=== PATIENT | female | born 1970 | race Caucasian/White ===

== ENCOUNTER 2024-03-11 00:31 | Emergency (ER) | payer OTHER ==
[2024-03-11 01:34] VITALS: RESP 18; TEMP 98.2
--- NOTE | 2024-03-11 01:58 | XR ---
EXAM: XR Chest, 2 Views CLINICAL HISTORY: ITS.REASON XR Reason: Weakness TECHNIQUE: Frontal and lateral views of the chest. COMPARISON: No relevant prior studies available. FINDINGS: Lungs: Unremarkable. No consolidation. Pleural space: Unremarkable. No pneumothorax. Heart: Unremarkable. No cardiomegaly. Mediastinum: Unremarkable. Normal mediastinal contour. Bones/joints: Multilevel thoracolumbar fusion hardware. No acute fracture. Tubes, lines and devices: LEFT Port-A-Cath terminates in the SVC. IMPRESSION: No acute findings in the chest.
--- NOTE | 2024-03-11 02:12 | XR ---
EXAM: XR Right Knee, 3 Views CLINICAL HISTORY: ITS.REASON XR Reason: pain TECHNIQUE: Three views of the right knee. COMPARISON: No relevant prior studies available. FINDINGS: Bones/joints: Severe joint space narrowing of the medial compartment. Tricompartmental osteophytic spurring. Osseous demineralization. No acute fracture or subluxation. Soft tissues: Unremarkable. IMPRESSION: 1. No acute fracture or subluxation. 2. Severe joint space narrowing of the medial compartment. Tricompartmental osteophytic spurring.
[2024-03-11] MEDS: SODIUM CHLORIDE 0.9% 1,000 ML IV STA (02:27)
[2024-03-11] MEDS: KETOROLAC 15 MG/ML 1 ML VIAL IVP STA (02:28)
[2024-03-11] MEDS: methylPREDNISolone SOD SUCCI 125 MG/2 ML VIAL IV ONE (02:28)
[2024-03-11 02:42] LABS: Basophils # (A) 0.1 k/uL (0-0.2); Basophils % (A) 1 %; Eosinophils # (A) 0.4 k/uL (0-0.7); Eosinophils % (A) 4 %; HCT 40.3 % (34.0-46.0); Lymphocytes # (A) 1.4 k/uL (1.0-4.8); Lymphocytes % (A) 14 %; MCH 32.4 pg (25.0-35.0); MCHC 34.7 g/dL (31.0-37.0); MCV 93.5 fL (80.0-100.0); Mean Platelet Volume 7.6; Monocytes # (A) 0.3 k/uL (0-1.0); Monocytes % (A) 3 %; Neutrophils # (A) 7.2 k/uL (1.3-7.7); Neutrophils % (A) 75 %; Platelet Count 243 k/uL (150-450); RBC 4.32 m/uL (3.80-5.40); RDW 14.4 % (11.5-15.5); WBC 9.6 k/uL (3.8-10.6)
[2024-03-11 03:00] LABS: ALT 24 U/L (4-34); AST 33 U/L (14-36); African American GFR (CKD) 68 (>60 ml/min/1.73 sqM); Albumin 4.5 g/dL (3.5-5.0); Alkaline Phosphatase 145 U/L (38-126); Anion Gap 11 mmol/L; Blood Urea Nitrogen 38 mg/dL (7-17); Calcium 8.3 mg/dL (8.4-10.2); Carbon Dioxide 23 mmol/L (22-30); Chloride 106 mmol/L (98-107); Glucose 106 mg/dL (74-99); Non-African American GFR(CKD) 59 (>60 ml/min/1.73 sqM); Potassium 3.6 mmol/L (3.5-5.1); Sodium 140 mmol/L (137-145); Total Bilirubin 0.4 mg/dL (0.2-1.3); Total Protein 7.8 g/dL (6.3-8.2)
[2024-03-11] MEDS: IPRATROPIUM-ALBUTEROL 3 ML NEB INHALATION STA (03:02)
--- NOTE | 2024-03-11 03:31 | ED ---
Lower Extremity Injury HPI - General Chief Complaint: Extremity Injury, Lower Stated Complaint: Weak legs Time Seen by Provider: 03/11/24 00:57 Source: patient Mode of arrival: EMS Limitations: no limitations - History of Present Illness Initial Comments: 53-year-old female present with chief complaint of right knee pain. Patient has history of chronic knee pain and states that today the pain is much worse. She recently moved here from [place], she is currently homeless. She states that the airline lost her walker and it has been difficult for her to get around. Her pain is worse with weightbearing. She states that she does feel a bit generally weak. She also admits to some shortness of breath. She has history of asthma. She does smoke cigarettes and marijuana. No chest pain, fever, chills, nausea, vomiting, abdominal pain, numbness, tingling, recent injury or trauma. - Related Data Previous Rx's Medication Instructions Recorded Albuterol Sulfate [Albuterol 2 puff PO Q6H PRN #8.5 gm 03/11/24 Sulfate Hfa] methylPREDNISolone Dose Pack 4 mg PO DIRECTED #1 packet 03/11/24 [Medrol Dose Pack] Allergies Allergy/AdvReac Type Severity Reaction Status Date / Time No Known Allergies Allergy Verified 03/11/24 00:50 Review of Systems ROS Statement: Those systems with pertinent positive or pertinent negative responses have been documented in the HPI. ROS Other: All systems not noted in ROS Statement are negative. Past Medical History Past Medical History: Asthma, Hypertension Additional Past Medical History / Comment(s): rectal ca History of Any Multi-Drug Resistant Organisms: None Reported Past Surgical History: Orthopedic Surgery Additional Past Surgical History / Comment(s): thyroid removal, had an ostomy but had reversal surgery Past Psychological History: Anxiety, Depression Smoking Status: Current every day smoker, Vaper Past Alcohol Use History: Occasional Past Drug Use History: Marijuana, Methamphetamine General Exam Limitations: no limitations General appearance: alert, in no apparent distress Head exam: Present: atraumatic, normocephalic Eye exam: Present: normal appearance, EOMI Neck exam: Present: normal inspection. Absent: meningismus Respiratory exam: Present: wheezes. Absent: respiratory distress, rales, rhonchi, stridor Cardiovascular Exam: Present: regular rate, normal rhythm, normal heart sounds. Absent: systolic murmur, diastolic murmur, rubs, gallop, clicks Right Knee exam: Present: normal inspection, full ROM, tenderness Neurovascular tendon exam: Present: no vascular compromise Neurological exam: Present: alert, oriented X3 Psychiatric exam: Present: normal affect, normal mood Skin exam: Present: warm, dry Course Vital Signs 03/11/24 03/11/24 03/11/24 00:43 03:02 03:17 Temperature 98.2 F Pulse Rate 80 80 80 Respiratory 18 Rate Blood Pressure 95/54 O2 Sat by Pulse 98 Oximetry Medical Decision Making - Medical Decision Making Was pt. sent in by a medical professional or institution (, [place], [employer], urgent care, hospital, or shelter...) When possible be specific @ -No Did you speak to anyone other than the patient for history (EMS, parent, family, police, friend...)? What history was obtained from this source @ -No Did you review nursing and triage notes (agree or disagree)? Why? @ -I reviewed and agree with nursing and triage notes Were old charts reviewed (outside hosp., previous admission, EMS record, old EKG, old radiological studies, urgent care reports/EKG's, shelter records)? Report findings @ -No old charts were reviewed Differential Diagnosis (chest pain, altered mental status, abdominal pain women, abdominal pain men, vaginal bleeding, weakness, fever, dyspnea, syncope, headache, dizziness, GI bleed, back pain, seizure, CVA, palpatations, mental health, musculoskeletal)? @ -Differential Musculoskeletal Muscular strain, contusion, ligament sprain, fracture, arthritis, septic arthritis, bursitis, cellulitis, muscle spasm, nerve compression, DVT, arterial occlusion, herpes zoster, electrolyte abnormality, tumor.... This is not meant to be in all inclusive list EKG interpreted by me (3pts min.). @ -As above X-rays interpreted by me (1pt min.). @ -X-ray of the knee shows no acute fracture or subluxation. Severe joint space narrowing of the medial compartment. Tricompartmental osteophytic spurring Chest x-ray shows no acute findings CT interpreted by me (1pt min.). @ -None done U/S interpreted by me (1pt. min.). @ -None done What testing was considered but not performed or refused? (CT, X-rays, U/S, labs)? Why? @ -None What meds were considered but not given or refused? Why? @ -None Did you discuss the management of the patient with other professionals (professionals i.e. , [place], [employer], lab, RT, psych nurse, addiction social worker, security risk analyst, teacher, juvenile justice officer, nurse case management)? Give summary @ -No Was smoking cessation discussed for >3mins.? @ -No Was critical care preformed (if so, how long)? @ -No Were there social determinants of health that impacted care today? How? (Homelessness, low income, unemployed, alcoholism, drug addiction, transportation, low edu. Level, literacy, decrease access to med. care, group home, rehab)? @ -No Was there de-escalation of care discussed even if they declined (Discuss DNR or withdrawal of care, Hospice)? DNR status @ -No What co-morbidities impacted this encounter? (DM, HTN, Smoking, COPD, CAD, Cancer, CVA, ARF, Chemo, Hep., AIDS, mental health diagnosis, sleep apnea, morbid obesity)? @ -None Was patient admitted / discharged? Hospital course, mention meds given and route, prescriptions, significant lab abnormalities, going to OR and other pertinent info. @ -53-year-old female presenting with chief complaint of knee pain. Her walker was recently lost on her flight from [place] to [place], she has been in [place] for the last day. On physical exam she does have some expiratory wheezes on auscultation. States that she feels a bit generally weak. Lab work shows no leukocytosis or anemia. BUN 38 creatinine 1.07. Knee x-ray shows no fracture or dislocation, evidence of degenerative changes. Chest x-ray shows no acute findings. Patient is treated with Toradol, Solu-Medrol, DuoNeb, and fluids. On reassessment the patient is resting comfortably showing no acute signs of distress. She is provided with a prescription for a new walker to be purchased at a medical supply store. Provided with Medrol Dosepak and albuterol inhaler for her asthma. Discharged home. Follow-up with PCP. Report back to ER with any new or worsening symptoms. Discussed return parameters and answered all questions. Patient conveyed verbal understanding and agreed to the plan. I discussed this case in detail with my attending Dr. Lopez Undiagnosed new problem with uncertain prognosis? @ -No Drug Therapy requiring intensive monitoring for toxicity (Heparin, Nitro, Insulin, Cardizem)? @ -No Were any procedures done? @ -No Diagnosis/symptom? @ -Knee pain Acute, or Chronic, or Acute on Chronic? @ -Acute on chronic Uncomplicated (without systemic symptoms) or Complicated (systemic symptoms)? @ -Uncomplicated Side effects of treatment? @ -No Exacerbation, Progression, or Severe Exacerbation? @ -No Poses a threat to life or bodily function? How? (Chest pain, [place], [place], pneumonia, PE, COPD, DKA, ARF, appy, cholecystitis, CVA, Diverticulitis, Homicidal, Suicidal, threat to staff... and all critical care pts) @ -No Diagnosis/symptom? @Asthma exacerbation Acute, or Chronic, or Acute on Chronic? @Acute Uncomplicated (without systemic symptoms) or Complicated (systemic symptoms)? @Uncomplicated Side effects of treatment? @None Exacerbation, Progression, or Severe Exacerbation] @Exacerbation Poses a threat to life or bodily function? @Low likelihood - Lab Data Result diagrams: 03/11/24 02:31 03/11/24 02:31 Lab Results 03/11/24 03/11/24 Range/Units 02:31 02:31 WBC 9.6 (3.8-10.6) k/uL RBC 4.32 (3.80-5.40) m/uL Hgb 14.0 (11.4-16.0) gm/dL Hct 40.3 (34.0-46.0) % MCV 93.5 (80.0-100.0) fL MCH 32.4 (25.0-35.0) pg MCHC 34.7 (31.0-37.0) g/dL RDW 14.4 (11.5-15.5) % Plt Count 243 (150-450) k/uL MPV 7.6 Neutrophils % 75 % Lymphocytes % 14 % Monocytes % 3 % Eosinophils % 4 % Basophils % 1 % Neutrophils # 7.2 (1.3-7.7) k/uL Lymphocytes # 1.4 (1.0-4.8) k/uL Monocytes # 0.3 (0-1.0) k/uL Eosinophils # 0.4 (0-0.7) k/uL Basophils # 0.1 (0-0.2) k/uL Sodium 140 (137-145) mmol/L Potassium 3.6 (3.5-5.1) mmol/L Chloride 106 (98-107) mmol/L Carbon Dioxide 23 (22-30) mmol/L Anion Gap 11 mmol/L BUN 38 H (7-17) mg/dL Creatinine 1.07 H (0.52-1.04) mg/dL Est GFR (CKD-EPI)AfAm 68 (>60 ml/min/1.73 sqM) Est GFR (CKD-EPI)NonAf 59 (>60 ml/min/1.73 sqM) Glucose 106 H (74-99) mg/dL Calcium 8.3 L (8.4-10.2) mg/dL Total Bilirubin 0.4 (0.2-1.3) mg/dL AST 33 (14-36) U/L ALT 24 (4-34) U/L Alkaline Phosphatase 145 H (38-126) U/L Total Protein 7.8 (6.3-8.2) g/dL Albumin 4.5 (3.5-5.0) g/dL Disposition Clinical Impression: Chronic knee pain, Asthma exacerbation Disposition: HOME SELF-CARE Condition: Good Instructions (If sedation given, give patient instructions): Asthma (ED), Knee Pain (ED) Additional Instructions: Follow-up with PCP, suggestions provided. Report back to ER with any new or worsening symptoms. Prescriptions: Albuterol Sulfate [Albuterol Sulfate Hfa] 2 puff PO Q6H PRN #8.5 gm PRN Reason: Shortness Of Breath methylPREDNISolone Dose Pack [Medrol Dose Pack] 4 mg PO DIRECTED #1 packet Is patient prescribed a controlled substance at d/c from ED?: No Referrals: None,Stated [Primary Care Provider] - 1-2 days Suresh Weir MD [STAFF PHYSICIAN] - 1-2 days Felix John MD [STAFF PHYSICIAN] - 1-2 days Time of Disposition: 03:31
[2024-03-11 03:45] VITALS: BP 119/66; PULSE 90
== END 2024-03-11 03:47 | disposition home or self-care (01) ==
LOC: EC 00:31
DX: J45.901 Unspecified asthma with (acute) exacerbation (principal); G89.29 Other chronic pain; M76.9 Unspecified enthesopathy, lower limb, excluding foot; F17.290 Nicotine dependence, other tobacco product, uncomplicated
CPT/HCPCS: 36415; 94640; 80053; 85025; 73562; 71046; 99284; 96374; 96375; 96361; J1885; J2919

== ENCOUNTER 2024-03-24 16:01 | Emergency (ER) | payer OTHER ==
--- NOTE | 2024-03-24 16:36 | ED ---
Female Urogenital HPI - General Source: patient, RN notes reviewed Mode of arrival: ambulatory Limitations: no limitations <Toya Matta - Last Filed: 03/24/24 16:35> <Anderson Lopez - Last Filed: 03/24/24 18:31> - General Stated complaint: UTI Time Seen by Provider: 03/24/24 16:35 - History of Present Illness Initial comments: Quick note: 53-year-old female presented to the ER with a chief complaint of urinary frequency and dysuria. She reports she has been having the symptoms for the past week and has been trying cranberry juice without relief. She denies any fevers or chills. Patient is concerned she has a UTI. (Toya Matta) - Related Data Previous Rx's Medication Instructions Recorded Albuterol Sulfate [Albuterol 2 puff PO Q6H PRN #8.5 gm 03/11/24 Sulfate Hfa] Albuterol Sulfate [Albuterol 2 puff PO Q6H PRN #8.5 gm 03/11/24 Sulfate Hfa] methylPREDNISolone Dose Pack 4 mg PO DIRECTED #1 packet 03/11/24 [Medrol Dose Pack] methylPREDNISolone Dose Pack 4 mg PO DIRECTED #1 packet 03/11/24 [Medrol Dose Pack] Cephalexin [Keflex] 500 mg PO Q6HR #20 cap 03/24/24 Allergies Allergy/AdvReac Type Severity Reaction Status Date / Time No Known Allergies Allergy Verified 03/24/24 17:02 Review of Systems ROS Other: All systems not noted in ROS Statement are negative. <Toya Matta - Last Filed: 03/24/24 16:35> ROS Other: All systems not noted in ROS Statement are negative. <Anderson Lopez - Last Filed: 03/24/24 18:31> ROS Statement: Those systems with pertinent positive or pertinent negative responses have been documented in the HPI. Past Medical History Past Medical History: Asthma, Hypertension Additional Past Medical History / Comment(s): rectal ca History of Any Multi-Drug Resistant Organisms: None Reported Past Surgical History: Orthopedic Surgery Additional Past Surgical History / Comment(s): thyroid removal, had an ostomy but had reversal surgery Past Psychological History: Anxiety, Depression Smoking Status: Current every day smoker, Vaper Past Alcohol Use History: Occasional Past Drug Use History: Marijuana, Methamphetamine <Toya Matta - Last Filed: 03/24/24 16:35> General Exam <Toya Matta - Last Filed: 03/24/24 16:35> - General Exam Comments Initial Comments: Visual Physical Exam Vital signs reviewed General: Well-appearing, nontoxic, no acute distress. Head: Normocephalic, atraumatic Eyes: PERRLA, EOMI ENT: Airway patent Chest: Nonlabored breathing Skin: No visual rash, normal skin tone Neuro: Alert and oriented 3 Musculoskeletal: No gross abnormalities (Toya Matta) Course Vital Signs 03/24/24 17:00 Temperature 98.2 F Pulse Rate 100 Respiratory 18 Rate Blood Pressure 139/90 O2 Sat by Pulse 100 Oximetry Medical Decision Making <Toya Matta - Last Filed: 03/24/24 16:35> - Medical Decision Making I performed the quick note portion of this chart. Electronically signed by Toya Matta PA-C (Toya Matta) - Lab Data Lab Results 03/24/24 Range/Units 17:00 Urine Color Yellow Urine Appearance Clear (Clear) Urine pH 5.5 (5.0-8.0) Ur Specific [place] 1.026 (1.001-1.035) Urine Protein Trace H (Negative) Urine Glucose (UA) Negative (Negative) Urine Ketones Negative (Negative) Urine Blood Negative (Negative) Urine Nitrite Negative (Negative) Urine Bilirubin Negative (Negative) Urine Urobilinogen 2.0 (<2.0) mg/dL Ur Leukocyte Esterase Large H (Negative) Urine RBC 3 (0-5) /hpf Urine WBC 1 (0-5) /hpf Ur Squamous Epith Cells 1 (0-4) /hpf Urine Mucus Many H (None) /hpf Disposition <Toya Matta - Last Filed: 03/24/24 16:35> Is patient prescribed a controlled substance at d/c from ED?: No Time of Disposition: 18:30 <Anderson Lopez - Last Filed: 03/24/24 18:31> Clinical Impression: UTI (urinary tract infection), Chest pain Disposition: HOME SELF-CARE Condition: Good Instructions (If sedation given, give patient instructions): Chest Pain (ED), Urinary Tract Infection in Women (ED) Prescriptions: Cephalexin [Keflex] 500 mg PO Q6HR #20 cap Referrals: None,Stated [Primary Care Provider] - 1-2 days
[2024-03-24 17:05] VITALS: BP 139/90; RESP 18; TEMP 98.2
[2024-03-24 17:55] LABS: Appearance,Urine Clear (Clear); Bilirubin,Urine Negative (Negative); Blood,Urine Negative (Negative); Color,Urine Yellow; Glucose,Urine (UA) Negative (Negative); Ketones,Urine Negative (Negative); Leukocyte Esterase,Urine Large (Negative); Mucus,Urine Many /hpf; Nitrite,Urine Negative (Negative); PH, Urine 5.5 (5.0-8.0); Protein,Urine Trace (Negative); RBC,Urine 3 /hpf (0-5); Specific Gravity,Urine 1.026 (1.001-1.035); Squamous Epithelial Cell,Urine 1 /hpf (0-4); WBC,Urine 1 /hpf (0-5)
[2024-03-24] MEDS: Acetaminophen-Codeine 300-30mg TAB PO STA (18:44)
[2024-03-24] MEDS: ACET/COD 300 MG/30 MG STARTER PACK 6 TAB BTL PO STA (18:45)
[2024-03-24] MEDS: IBUPROFEN 600 MG STARTER PACK 4 TAB BTL PO STA (18:46)
[2024-03-24] MEDS: CEPHALEXIN 500MG STARTER PACK 4 CAP BTL PO STA (18:47)
[2024-03-24] MEDS: CEPHALEXIN 500 MG CAP PO STA (18:47)
[2024-03-24 19:28] VITALS: PULSE 87
== END 2024-03-24 18:52 | disposition home or self-care (01) ==
LOC: EC 16:01
DX: N39.0 Urinary tract infection, site not specified (principal); R07.89 Other chest pain; F17.290 Nicotine dependence, other tobacco product, uncomplicated; F12.90 Cannabis use, unspecified, uncomplicated; F15.90 Other stimulant use, unspecified, uncomplicated
CPT/HCPCS: 81001; 99283

== ENCOUNTER 2024-03-26 23:53 | Emergency (ER) | payer OTHER ==
[2024-03-27 01:26] LABS: Basophils # (A) 0.1 k/uL (0-0.2); Basophils % (A) 1 %; Eosinophils # (A) 0.3 k/uL (0-0.7); Eosinophils % (A) 4 %; HCT 42.8 % (34.0-46.0); HGB 14.3 gm/dL (11.4-16.0); Lymphocytes # (A) 1.7 k/uL (1.0-4.8); Lymphocytes % (A) 18 %; MCHC 33.3 g/dL (31.0-37.0); MCV 93.3 fL (80.0-100.0); Monocytes # (A) 0.5 k/uL (0-1.0); Monocytes % (A) 5 %; Neutrophils # (A) 6.6 k/uL (1.3-7.7); Neutrophils % (A) 70 %; Platelet Count 214 k/uL (150-450); RBC 4.59 m/uL (3.80-5.40); WBC 9.5 k/uL (3.8-10.6)
[2024-03-27 01:36] LABS: ALT 33 U/L (4-34); AST 34 U/L (14-36); African American GFR (CKD) >90 (>60 ml/min/1.73 sqM); Alkaline Phosphatase 164 U/L (38-126); Anion Gap 7 mmol/L; Blood Urea Nitrogen 24 mg/dL (7-17); Calcium 8.5 mg/dL (8.4-10.2); Carbon Dioxide 23 mmol/L (22-30); Chloride 108 mmol/L (98-107); Glucose 92 mg/dL (74-99); Non-African American GFR(CKD) >90 (>60 ml/min/1.73 sqM); Potassium 3.8 mmol/L (3.5-5.1); Sodium 138 mmol/L (137-145); Total Bilirubin 0.6 mg/dL (0.2-1.3)
--- NOTE | 2024-03-27 01:54 | ED ---
General Adult HPI - General Chief complaint: Recheck/Abnormal Lab/Rx Stated complaint: UTI Time Seen by Provider: 03/27/24 01:05 Source: patient Mode of arrival: ambulatory Limitations: no limitations - History of Present Illness Initial comments: 53-year-old female presenting with chief complaint of UTI. Patient was seen here on the with the same complaints. She was started on Keflex. States that her symptoms have worsened. She admits to dysuria and bilateral flank pain. States that she is experiencing bladder spasms. Some nausea no vomiting. No fever. - Related Data Previous Rx's Medication Instructions Recorded Albuterol Sulfate [Albuterol 2 puff PO Q6H PRN #8.5 gm 03/11/24 Sulfate Hfa] Albuterol Sulfate [Albuterol 2 puff PO Q6H PRN #8.5 gm 03/11/24 Sulfate Hfa] methylPREDNISolone Dose Pack 4 mg PO DIRECTED #1 packet 03/11/24 [Medrol Dose Pack] methylPREDNISolone Dose Pack 4 mg PO DIRECTED #1 packet 03/11/24 [Medrol Dose Pack] Cephalexin [Keflex] 500 mg PO Q6HR #20 cap 03/24/24 Sulfamethox-Tmp 800-160Mg [Bactrim 1 tab PO Q12HR 7 Days #14 tab 03/27/24 DS 800-160 mg] Allergies Allergy/AdvReac Type Severity Reaction Status Date / Time No Known Allergies Allergy Verified 03/24/24 17:02 Review of Systems ROS Statement: Those systems with pertinent positive or pertinent negative responses have been documented in the HPI. ROS Other: All systems not noted in ROS Statement are negative. Past Medical History Past Medical History: Asthma, Hypertension Additional Past Medical History / Comment(s): rectal ca [id number] with chemo and radiation History of Any Multi-Drug Resistant Organisms: C-DIFF Past Surgical History: Orthopedic Surgery Additional Past Surgical History / Comment(s): thyroid removal, had an ostomy but had reversal surgery, 8 level spinal fusion Past Psychological History: Anxiety, Depression Smoking Status: Current every day smoker, Vaper Past Alcohol Use History: Occasional Past Drug Use History: Marijuana, Methamphetamine General Exam Limitations: no limitations General appearance: alert, in no apparent distress Head exam: Present: atraumatic, normocephalic Eye exam: Present: normal appearance, EOMI Neck exam: Present: normal inspection. Absent: meningismus Respiratory exam: Present: normal lung sounds bilaterally. Absent: respiratory distress, wheezes, rales, rhonchi, stridor Cardiovascular Exam: Present: regular rate, normal rhythm, normal heart sounds. Absent: systolic murmur, diastolic murmur, rubs, gallop, clicks Back exam: Present: normal inspection, paraspinal tenderness. Absent: vertebral tenderness Neurological exam: Present: alert, oriented X3 Psychiatric exam: Present: normal affect, normal mood Skin exam: Present: warm, dry Course Vital Signs 03/27/24 03/27/24 00:08 04:42 Temperature 98.2 F 98.1 F Pulse Rate 83 78 Respiratory 21 18 Rate Blood Pressure 119/86 120/88 O2 Sat by Pulse 99 99 Oximetry Medical Decision Making - Medical Decision Making Patient has been here for 4 hours and in that time has refused to provide a urine sample. Given that the patient is not willing to cooperate with the plan of care she was discharged. Was pt. sent in by a medical professional or institution (, [place], [employer], urgent care, hospital, or care home...) When possible be specific @ -No Did you speak to anyone other than the patient for history (EMS, parent, family, police, friend...)? What history was obtained from this source @ -No Did you review nursing and triage notes (agree or disagree)? Why? @ -I reviewed and agree with nursing and triage notes Were old charts reviewed (outside hosp., previous admission, EMS record, old EKG, old radiological studies, urgent care reports/EKG's, care home records)? Report findings @ -No old charts were reviewed Differential Diagnosis (chest pain, altered mental status, abdominal pain women, abdominal pain men, vaginal bleeding, weakness, fever, dyspnea, syncope, headache, dizziness, GI bleed, back pain, seizure, CVA, palpatations, mental health, musculoskeletal)? @ -Differential includes UTI, pyelonephritis, kidney stone, cystitis, this is not an all-inclusive list EKG interpreted by me (3pts min.). @ -As above X-rays interpreted by me (1pt min.). @ -None done CT interpreted by me (1pt min.). @ -None done U/S interpreted by me (1pt. min.). @ -None done What testing was considered but not performed or refused? (CT, X-rays, U/S, labs)? Why? @ -None What meds were considered but not given or refused? Why? @ -None Did you discuss the management of the patient with other professionals (professionals i.e. , PA, [employer], lab, RT, psych nurse, manager social services, cork tipper, teacher, aeronautical engineering officer, family caseworker)? Give summary @ -No Was smoking cessation discussed for >3mins.? @ -No Was critical care preformed (if so, how long)? @ -No Were there social determinants of health that impacted care today? How? (Homelessness, low income, unemployed, alcoholism, drug addiction, transportation, low edu. Level, literacy, decrease access to med. care, nursing home, rehab)? @ -No Was there de-escalation of care discussed even if they declined (Discuss DNR or withdrawal of care, Hospice)? DNR status @ -No What co-morbidities impacted this encounter? (DM, HTN, Smoking, COPD, CAD, Cancer, CVA, ARF, Chemo, Hep., AIDS, mental health diagnosis, sleep apnea, morbid obesity)? @ -None Was patient admitted / discharged? Hospital course, mention meds given and route , prescriptions, significant lab abnormalities, going to OR and other pertinent info. @ -53-year-old female presenting with chief complaint of worsening urinary tract infection. She was seen here on the and given Keflex. She states that her symptoms are not improving. Lab work shows no leukocytosis or anemia. After 4 hours the patient has not made any effort to provide a urine. When I a sked the patient when she will be able to provide a urine she tells me "no". The patient is sleeping in the room and refuses to leave a urine sample. Given that the patient is not willing to cooperate with the plan of care she was discharged. I discussed this case with my attending Dr. Zelaya The following day UA results are available to me and show large leukocytes with 30 WBC and 9 squamous cells. Patient is sent a prescription for Bactrim. Undiagnosed new problem with uncertain prognosis? @ -No Drug Therapy requiring intensive monitoring for toxicity (Heparin, Nitro, Insulin, Cardizem)? @ -No Were any procedures done? @ -No Diagnosis/symptom? @ -Dysuria Acute, or Chronic, or Acute on Chronic? @ -Acute Uncomplicated (without systemic symptoms) or Complicated (systemic symptoms)? @ -Uncomplicated Side effects of treatment? @ -No Exacerbation, Progression, or Severe Exacerbation? @ -No Poses a threat to life or bodily function? How? (Chest pain, [place], [place], pneumonia, PE, COPD, DKA, ARF, appy, cholecystitis, CVA, Diverticulitis, Homicidal, Suicidal, threat to staff... and all critical care pts) @ -Low likelihood at this time - Lab Data Result diagrams: 03/27/24 01:13 03/27/24 01:13 Lab Results 03/27/24 03/27/24 03/27/24 Range/Units 01:13 01:13 04:08 WBC 9.5 (3.8-10.6) k/uL RBC 4.59 (3.80-5.40) m/uL Hgb 14.3 (11.4-16.0) gm/dL Hct 42.8 (34.0-46.0) % MCV 93.3 (80.0-100.0) fL MCH 31.0 (25.0-35.0) pg MCHC 33.3 (31.0-37.0) g/dL RDW 14.0 (11.5-15.5) % Plt Count 214 (150-450) k/uL MPV 7.0 Neutrophils % 70 % Lymphocytes % 18 % Monocytes % 5 % Eosinophils % 4 % Basophils % 1 % Neutrophils # 6.6 (1.3-7.7) k/uL Lymphocytes # 1.7 (1.0-4.8) k/uL Monocytes # 0.5 (0-1.0) k/uL Eosinophils # 0.3 (0-0.7) k/uL Basophils # 0.1 (0-0.2) k/uL Sodium 138 (137-145) mmol/L Potassium 3.8 (3.5-5.1) mmol/L Chloride 108 H (98-107) mmol/L Carbon Dioxide 23 (22-30) mmol/L Anion Gap 7 mmol/L BUN 24 H (7-17) mg/dL Creatinine 0.67 (0.52-1.04) mg/dL Est GFR (CKD-EPI)AfAm >90 (>60 ml/min/1.73 sqM) Est GFR (CKD-EPI)NonAf >90 (>60 ml/min/1.73 sqM) Glucose 92 (74-99) mg/dL Calcium 8.5 (8.4-10.2) mg/dL Total Bilirubin 0.6 (0.2-1.3) mg/dL AST 34 (14-36) U/L ALT 33 (4-34) U/L Alkaline Phosphatase 164 H (38-126) U/L Total Protein 7.0 (6.3-8.2) g/dL Albumin 4.0 (3.5-5.0) g/dL Urine Color Yellow Urine Appearance Cloudy H (Clear) Urine pH 5.5 (5.0-8.0) Ur Specific [place] 1.029 (1.001-1.035) Urine Protein Trace H (Negative) Urine Glucose (UA) Negative (Negative) Urine Ketones Negative (Negative) Urine Blood Negative (Negative) Urine Nitrite Negative (Negative) Urine Bilirubin Negative (Negative) Urine Urobilinogen 2.0 (<2.0) mg/dL Ur Leukocyte Esterase Large H (Negative) Urine RBC 5 (0-5) /hpf Urine WBC 30 H (0-5) /hpf Ur Squamous Epith Cells 9 H (0-4) /hpf Urine Bacteria Rare H (None) /hpf Urine Mucus Many H (None) /hpf Disposition Clinical Impression: Dysuria Narrative: Patient refused to cooperate and provide requested urine sample. Discharged. Disposition: HOME SELF-CARE Condition: Fair Prescriptions: Sulfamethox-Tmp 800-160Mg [Bactrim DS 800-160 mg] 1 tab PO Q12HR 7 Days #14 tab Is patient prescribed a controlled substance at d/c from ED?: No Referrals: None,Stated [Primary Care Provider] - 1-2 days
[2024-03-27] MEDS: KETOROLAC 15 MG/ML 1 ML VIAL IM STA (02:10)
[2024-03-27 04:24] LABS: Appearance,Urine Cloudy (Clear); Bacteria,Urine Rare /hpf; Bilirubin,Urine Negative (Negative); Blood,Urine Negative (Negative); Color,Urine Yellow; Glucose,Urine (UA) Negative (Negative); Ketones,Urine Negative (Negative); Leukocyte Esterase,Urine Large (Negative); Mucus,Urine Many /hpf; Nitrite,Urine Negative (Negative); PH, Urine 5.5 (5.0-8.0); Protein,Urine Trace (Negative); RBC,Urine 5 /hpf (0-5); Specific Gravity,Urine 1.029 (1.001-1.035); Squamous Epithelial Cell,Urine 9 /hpf (0-4); WBC,Urine 30 /hpf (0-5)
[2024-03-27 04:49] VITALS: BP 120/88; PULSE 78; RESP 18; TEMP 98.1
== END 2024-03-27 04:43 | disposition home or self-care (01) ==
LOC: EC 23:53
DX: R30.0 Dysuria (principal); F12.90 Cannabis use, unspecified, uncomplicated; F15.90 Other stimulant use, unspecified, uncomplicated; F17.290 Nicotine dependence, other tobacco product, uncomplicated
CPT/HCPCS: 36415; 80053; 85025; 81001; 87086; 99284; 96372; J1885

== ENCOUNTER 2024-05-22 17:32 | Inpatient (IN) | payer MEDICARE, MEDICAID ==
--- NOTE | 2024-05-22 17:39 | ED ---
General Adult HPI <Suresh Hobson - Last Filed: 05/22/24 22:33> <Pao Jarquin - Last Filed: 05/26/24 00:47> - General Stated complaint: overdose Time Seen by Provider: 05/22/24 17:36 - History of Present Illness Initial comments: Dictation was produced using [employer] dictation software. please excuse any grammatical, word or spelling errors. Chief Complaint: 54-year-old female presents to the ER for altered mental status History of Present Illness: Patient 54-year-old female history present illness obtained from EMS. EMS states that they were called by PD for altered patient at the [facility]. Patient notably has history of rectal cancer. Upon EMS arrival patient had stable vitals. They were able to arouse her however require d sternal rub. She did mention to them that she took 5 to 10 pills of her Ambien because she was try to go to sleep. Patient allegedly came in by PD yesterday for suicidal evaluation however she left without being seen. Patient is a poor historian at this time due to somnolence Unable to obtain ROS secondary to mental status (Suresh Hobson) - Related Data Home Medications Medication Instructions Recorded Confirmed Albuterol Sulfate [Albuterol 2 puff PO RT-Q6H PRN 05/22/24 05/23/24 Sulfate Hfa] Buprenorphine HCl/Naloxone HCl 1 film SL TID 05/22/24 05/23/24 [Suboxone 8 mg-2 mg Sl Film] Furosemide [Lasix] 20 mg PO DAILY PRN 05/22/24 05/23/24 Levothyroxine Sodium [Synthroid] 175 mcg PO DAILY 05/22/24 05/23/24 Potassium Chloride ER [K-Dur 10] 10 meq PO BID PRN 05/22/24 05/23/24 hydroCHLOROthiazide [Hydrodiuril] 25 mg PO DAILY 05/22/24 05/23/24 lisinopriL [Zestril] 20 mg PO DAILY 05/22/24 05/23/24 DULoxetine HCL [Cymbalta] 60 mg PO DIRECTED 05/23/24 05/23/24 Omeprazole/Sodium Bicarbonate 1 cap PO BID 05/23/24 05/23/24 [Zegerid 20 mg Capsule] Allergies Allergy/AdvReac Type Severity Reaction Status Date / Time No Known Allergies Allergy Verified 05/23/24 11:34 Review of Systems ROS Other: All systems not noted in ROS Statement are negative. <Suresh Hobson - Last Filed: 05/22/24 22:33> ROS Other: All systems not noted in ROS Statement are negative. <MilkaPao Bong - Last Filed: 05/26/24 00:47> ROS Statement: Those systems with pertinent positive or pertinent negative responses have been documented in the HPI. Past Medical History Past Medical History: Asthma, Hypertension Additional Past Medical History / Comment(s): rectal ca [id number] with chemo and radiation History of Any Multi-Drug Resistant Organisms: C-DIFF Past Surgical History: Orthopedic Surgery Additional Past Surgical History / Comment(s): thyroid removal, had an ostomy but had reversal surgery, 8 level spinal fusion Past Psychological History: Anxiety, Depression Smoking Status: Current every day smoker, Vaper Past Alcohol Use History: Occasional Past Drug Use History: Marijuana, Methamphetamine <Suresh Hobson - Last Filed: 05/22/24 22:33> General Exam <Suresh Hobson - Last Filed: 05/22/24 22:33> - General Exam Comments Initial Comments: PHYSICAL EXAM: General Impression: Sleeping, arousable with sternal rub, no pinpoint pupils, was able to move herself from the EMS stretcher to the bed. HEENT: Normocephalic atraumatic, extra-ocular movements intact, pupils equal and reactive to light bilaterally, mucous membranes moist. Cardiovascular: Heart regular rate and rhythm Chest: no retractions, no tachypnea Abdomen: abdomen soft, non-tender, non-distended, no organomegaly Musculoskeletal: Pulses present and equal in all extremities, no peripheral edema Motor: no focal deficits noted Neurological: CN II-XII grossly intact, no focal motor or sensory deficits noted Skin: Intact with no visualized rashes (Suresh Hobson) Course <Suresh Hobson - Last Filed: 05/22/24 22:33> Vital Signs 05/22/24 05/22/24 05/22/24 17:35 18:30 19:23 Temperature 98 F Pulse Rate 95 90 82 Respiratory 15 22 20 Rate Blood Pressure 141/85 155/96 147/98 O2 Sat by Pulse 96 99 99 Oximetry 05/22/24 05/22/24 05/22/24 21:00 22:00 22:38 Temperature Pulse Rate 87 84 88 Respiratory 26 H 24 Rate Blood Pressure 152/90 165/93 163/80 O2 Sat by Pulse 99 98 98 Oximetry 05/22/24 05/23/24 05/23/24 23:00 00:00 00:22 Temperature Pulse Rate 87 90 89 Respiratory Rate Blood Pressure 163/80 163/126 170/90 O2 Sat by Pulse 99 99 99 Oximetry 05/23/24 05/23/24 05/23/24 01:00 02:00 03:00 Temperature Pulse Rate 87 86 92 Respiratory 16 Rate Blood Pressure 153/81 165/94 136/60 O2 Sat by Pulse 99 100 97 Oximetry 05/23/24 05/23/24 05/23/24 04:00 05:00 06:00 Temperature Pulse Rate 89 91 75 Respiratory 16 16 16 Rate Blood Pressure 148/86 129/113 172/100 O2 Sat by Pulse 95 97 96 Oximetry 05/23/24 13:58 Temperature Pulse Rate 79 Respiratory 18 Rate Blood Pressure 145/73 O2 Sat by Pulse 96 Oximetry - Reevaluation(s) Reevaluation #1: 05/22/24 19:13 Patient did admit to overdosing on her Ambien medication. Labs unremarkable. Patient medically cleared for EPS evaluation. (Suresh Hobson) EKG Findings - EKG Comments: EKG Findings:: My EKG interpretation: Ventricular rate 90, sinus rhythm, right bundle branch block,. 176, cures 145, QTc 478. No MS prolongation, no QTC prolongation, no ST or T-wave changes noted. EKG compared to March 25, 2024 showing no changes. Overall, this EKG is unremarkable <Suresh Hobson - Last Filed: 05/22/24 22:33> Medical Decision Making - Lab Data Result diagrams: 05/22/24 18:09 05/22/24 18:09 <Suresh Hobson - Last Filed: 05/22/24 22:33> - Lab Data Result diagrams: 05/22/24 18:09 05/22/24 18:09 <Pao Jarquin - Last Filed: 05/26/24 00:47> - Medical Decision Making Was pt. sent in by a medical professional or institution (, PA, SEAL DELIVERY VEHICLE TEAM TECHNICIAN, urgent care, hospital, or correction...) When possible be specific @ -No Did you speak to anyone other than the patient for history (EMS, parent, family, police, friend...)? What history was obtained from this source @ -History obtained from EMS as described above Did you review nursing and triage notes (agree or disagree)? Why? @ -I reviewed and agree with nursing and triage notes Were old charts reviewed (outside hosp., previous admission, EMS record, old EKG, old radiological studies, urgent care reports/EKG's, correction records)? Report findings @ -No old charts were reviewed Differential Diagnosis (chest pain, altered mental status, abdominal pain women, abdominal pain men, vaginal bleeding, musculoskeletal, weakness, fever, dyspnea, syncope, headache, dizziness, GI bleed, back pain, seizure, CVA, palpatations, mental health)? @ -Differential Mental Health: Depression, anxiety, bipolar, psychosis, schizophrenia, borderline personality, situational depression, adjustment disorder, behavioral disorder, brain tumor, malingering, substance abuse, encephalopathy, medication reaction, dementia, hypothyroidism, degenerative neurologic disorder, lupus.... This is not meant to be all-inclusive list EKG interpreted by me (3pts min.). @ -See above X-rays interpreted by me (1pt min.). @ -None done CT interpreted by me (1pt min.). @ -None done U/S interpreted by me (1pt. min.). @ -None done What testing was considered but not performed or refused? (CT, X-rays, U/S, labs)? Why? @ -None What meds were considered but not given or refused? Why? @ -None Was smoking cessation discussed for >3mins.? @ -No Were there social determinants of health that impacted care today? How? (Homelessness, low income, unemployed, alcoholism, drug addiction, transportation, low edu. Level, literacy, decrease access to med. care, shelter, rehab)? @ -No Was there de-escalation of care discussed even if they declined (Discuss DNR or withdrawal of care, Hospice)? DNR status @ -No What co-morbidities impacted this encounter? (DM, HTN, Smoking, COPD, CAD, Cancer, CVA, ARF, Chemo, Hep., AIDS, mental health diagnosis, sleep apnea, morbid obesity)? @ -None Was patient admitted / discharged? Hospital course, mention meds given and route, prescriptions, significant lab abnormalities, going to OR and other pertinent info. @ -54-year-old female presents to the emergency department [place] Vital signs upon arrival are within acceptable limits. Patient sleepy allegedly took several of her Ambien medication. Laboratory evaluation obtained. CBC, coag panel, metabolic panel is unremarkable. Tox labs are negative. No acidosis. Patient pending sobriety for medical clearance for EPS evaluation. Patient care signed out to oncoming physician for follow-up of EPS recommendations. Patient reevaluated bedside at 10:33 PM she is sleepy however arousable and in no acute distress Did you discuss the management of the patient with other professionals (professionals i.e. , PA, SEAL DELIVERY VEHICLE TEAM TECHNICIAN, lab, RT, psych nurse, social service technician, front worker, te acher, bsa/aml compliance officer, case coordinator)? Give summary @ -No Was critical care preformed (if so, how long)? @ -No Undiagnosed new problem with uncertain prognosis? @ -No Drug Therapy requiring intensive monitoring for toxicity (Heparin, Nitro, Insulin, Cardizem)? @ -No Were any procedures done? @ -No Diagnosis/symptom? Acute, or Chronic, or Acute on Chronic? Uncomplicated (without systemic symptoms) or Complicated (systemic symptoms)? @ -Overdose Side effects of treatment? @ -No Exacerbation, Progression, or Severe Exacerbation? @ -No Poses a threat to life or bodily function? How? (Chest pain, USA, ND, pneumonia, PE, COPD, DKA, ARF, appy, cholecystitis, CVA, Diverticulitis, Homicidal, Suicidal, threat to staff... and all critical care pts) @ -Yes (Suresh Hobson) patient evaluated by EPS and requires admission. Patient does sign herself in voluntarily. She then attempts to try and elope from the emergency department. It was discussed with the patient that she requires admission. She becomes verbally and physically aggressive with staff. I am asked to fill out a certification on the patient for which I did complete. Patient taken to the floor in stable condition (Damer,Pao A) - Lab Data Lab Results 05/22/24 05/22/24 05/22/24 Range/Units 17:53 18:09 18:09 WBC 7.0 (3.8-10.6) k/uL RBC 3.87 (3.80-5.40) m/uL Hgb 12.1 (11.4-16.0) gm/dL Hct 37.2 (34.0-46.0) % MCV 96.2 (80.0-100.0) fL MCH 31.2 (25.0-35.0) pg MCHC 32.5 (31.0-37.0) g/dL RDW 14.2 (11.5-15.5) % Plt Count 288 (150-450) k/uL MPV 6.6 Neutrophils % 58 % Lymphocytes % 28 % Monocytes % 6 % Eosinophils % 5 % Basophils % 1 % Neutrophils # 4.0 (1.3-7.7) k/uL Lymphocytes # 1.9 (1.0-4.8) k/uL Monocytes # 0.4 (0-1.0) k/uL Eosinophils # 0.3 (0-0.7) k/uL Basophils # 0.1 (0-0.2) k/uL PT 9.8 L (10.0-12.5) sec INR 0.9 (<1.2) APTT 25.8 (22.0-30.0) sec Sodium (137-145) mmol/L Potassium (3.5-5.1) mmol/L Chloride (98-107) mmol/L Carbon Dioxide (22-30) mmol/L Anion Gap mmol/L BUN (7-17) mg/dL Creatinine (0.52-1.04) mg/dL Est GFR (CKD-EPI)AfAm (>60 ml/min/1.73 sqM) Est GFR (CKD-EPI)NonAf (>60 ml/min/1.73 sqM) Glucose (74-99) mg/dL POC Glucose (mg/dL) 77 (70-110) mg/dL POC Glu Strategy Analyst ID Samantha Mireles Estimated Ave Glu mg/dL mg/dL Hemoglobin A1c (<=6.0) % Osmolality (275-295) mOsm/kg Plasma Lactic Acid William (0.7-2.0) mmol/L Calcium (8.4-10.2) mg/dL Magnesium (1.6-2.3) mg/dL Total Bilirubin (0.2-1.3) mg/dL AST (14-36) U/L ALT (4-34) U/L Alkaline Phosphatase (38-126) U/L Ammonia (<30) umol/L Total Protein (6.3-8.2) g/dL Albumin (3.5-5.0) g/dL Triglycerides (0.00-149.00) mg/dL Cholesterol (0.00-200.00) mg/dL LDL Cholesterol, Calc (0.0-131.0) mg/dL VLDL Cholesterol, Calc (5.00-40.00) mg/dL HDL Cholesterol (40.00-60.00) mg/dL Cholesterol/HDL Ratio Ratio TSH (0.350-5.500) UIU/ML Salicylates mg/dL Urine Opiates Screen (NotDetected) Ur Oxycodone Screen (NotDetected) Urine Methadone Screen (NotDetected) Acetaminophen ug/mL Ur Barbiturates Screen (NotDetected) U Tricyclic Antidepress (NotDetected) Ur Phencyclidine Scrn (NotDetected) Ur Amphetamines Screen (NotDetected) U Methamphetamines Scrn (NotDetected) U Benzodiazepines Scrn (NotDetected) Urine Cocaine Screen (NotDetected) U Marijuana (THC) Screen (NotDetected) Serum Alcohol mg/dL SARS-CoV-2 (PCR) (Not Detectd) 05/22/24 05/22/24 05/22/24 Range/Units 18:09 18:09 18:09 WBC (3.8-10.6) k/uL RBC (3.80-5.40) m/uL Hgb (11.4-16.0) gm/dL Hct (34.0-46.0) % MCV (80.0-100.0) fL MCH (25.0-35.0) pg MCHC (31.0-37.0) g/dL RDW (11.5-15.5) % Plt Count (150-450) k/uL MPV Neutrophils % % Lymphocytes % % Monocytes % % Eosinophils % % Basophils % % Neutrophils # (1.3-7.7) k/uL Lymphocytes # (1.0-4.8) k/uL Monocytes # (0-1.0) k/uL Eosinophils # (0-0.7) k/uL Basophils # (0-0.2) k/uL PT (10.0-12.5) sec INR (<1.2) APTT (22.0-30.0) sec Sodium 139 (137-145) mmol/L Potassium 3.6 (3.5-5.1) mmol/L Chloride 101 (98-107) mmol/L Carbon Dioxide 29 (22-30) mmol/L Anion Gap 9 mmol/L BUN 13 (7-17) mg/dL Creatinine 0.89 (0.52-1.04) mg/dL Est GFR (CKD-EPI)AfAm 84 (>60 ml/min/1.73 sqM) Est GFR (CKD-EPI)NonAf 73 (>60 ml/min/1.73 sqM) Glucose 79 (74-99) mg/dL POC Glucose (mg/dL) (70-110) mg/dL POC Glu Strategy Analyst ID Estimated Ave Glu mg/dL mg/dL Hemoglobin A1c (<=6.0) % Osmolality 316 H (275-295) mOsm/kg Plasma Lactic Acid William 1.8 (0.7-2.0) mmol/L Calcium 9.0 (8.4-10.2) mg/dL Magnesium 1.9 (1.6-2.3) mg/dL Total Bilirubin 0.4 (0.2-1.3) mg/dL AST 32 (14-36) U/L ALT 19 (4-34) U/L Alkaline Phosphatase 125 (38-126) U/L Ammonia <9 (<30) umol/L Total Protein 7.3 (6.3-8.2) g/dL Albumin 4.4 (3.5-5.0) g/dL Triglycerides (0.00-149.00) mg/dL Cholesterol (0.00-200.00) mg/dL LDL Cholesterol, Calc (0.0-131.0) mg/dL VLDL Cholesterol, Calc (5.00-40.00) mg/dL HDL Cholesterol (40.00-60.00) mg/dL Cholesterol/HDL Ratio Ratio TSH (0.350-5.500) UIU/ML Salicylates 1.4 mg/dL Urine Opiates Screen Not Detected (NotDetected) Ur Oxycodone Screen Not Detected (NotDetected) Urine Methadone Screen Not Detected (NotDetected) Acetaminophen <10.0 ug/mL Ur Barbiturates Screen Not Detected (NotDetected) U Tricyclic Antidepress Not Detected (NotDetected) Ur Phencyclidine Scrn Not Detected (NotDetected) Ur Amphetamines Screen Detected H (NotDetected) U Methamphetamines Scrn Detected H (NotDetected) U Benzodiazepines Scrn Not Detected (NotDetected) Urine Cocaine Screen Not Detected (NotDetected) U Marijuana (THC) Screen Detected H (NotDetected) Serum Alcohol 84 mg/dL SARS-CoV-2 (PCR) (Not Detectd) 05/22/24 05/22/24 05/23/24 Range/Units 18:09 18:09 10:04 WBC (3.8-10.6) k/uL RBC (3.80-5.40) m/uL Hgb (11.4-16.0) gm/dL Hct (34.0-46.0) % MCV (80.0-100.0) fL MCH (25.0-35.0) pg MCHC (31.0-37.0) g/dL RDW (11.5-15.5) % Plt Count (150-450) k/uL MPV Neutrophils % % Lymphocytes % % Monocytes % % Eosinophils % % Basophils % % Neutrophils # (1.3-7.7) k/uL Lymphocytes # (1.0-4.8) k/uL Monocytes # (0-1.0) k/uL Eosinophils # (0-0.7) k/uL Basophils # (0-0.2) k/uL PT (10.0-12.5) sec INR (<1.2) APTT (22.0-30.0) sec Sodium (137-145) mmol/L Potassium (3.5-5.1) mmol/L Chloride (98-107) mmol/L Carbon Dioxide (22-30) mmol/L Anion Gap mmol/L BUN (7-17) mg/dL Creatinine (0.52-1.04) mg/dL Est GFR (CKD-EPI)AfAm (>60 ml/min/1.73 sqM) Est GFR (CKD-EPI)NonAf (>60 ml/min/1.73 sqM) Glucose (74-99) mg/dL POC Glucose (mg/dL) (70-110) mg/dL POC Glu Strategy Analyst ID Estimated Ave Glu mg/dL 108 mg/dL Hemoglobin A1c 5.4 (<=6.0) % Osmolality (275-295) mOsm/kg Plasma Lactic Acid William (0.7-2.0) mmol/L Calcium (8.4-10.2) mg/dL Magnesium (1.6-2.3) mg/dL Total Bilirubin (0.2-1.3) mg/dL AST (14-36) U/L ALT (4-34) U/L Alkaline Phosphatase (38-126) U/L Ammonia (<30) umol/L Total Protein (6.3-8.2) g/dL Albumin (3.5-5.0) g/dL Triglycerides 228.00 H (0.00-149.00) mg/dL Cholesterol 302.00 H (0.00-200.00) mg/dL LDL Cholesterol, Calc 185.3 H (0.0-131.0) mg/dL VLDL Cholesterol, Calc 45.60 H (5.00-40.00) mg/dL HDL Cholesterol 71.10 H (40.00-60.00) mg/dL Cholesterol/HDL Ratio 4.25 Ratio TSH 15.500 H (0.350-5.500) UIU/ML Salicylates mg/dL Urine Opiates Screen (NotDetected) Ur Oxycodone Screen (NotDetected) Urine Methadone Screen (NotDetected) Acetaminophen ug/mL Ur Barbiturates Screen (NotDetected) U Tricyclic Antidepress (NotDetected) Ur Phencyclidine Scrn (NotDetected) Ur Amphetamines Screen (NotDetected) U Methamphetamines Scrn (NotDetected) U Benzodiazepines Scrn (NotDetected) Urine Cocaine Screen (NotDetected) U Marijuana (THC) Screen (NotDetected) Serum Alcohol mg/dL SARS-CoV-2 (PCR) Not Detected (Not Detectd) Disposition <Suresh Hobson - Last Filed: 05/22/24 22:33> Is patient prescribed a controlled substance at d/c from ED?: No Time of Disposition: 11:40 <Pao Jarquin - Last Filed: 05/26/24 00:47> Clinical Impression: Overdose Disposition: TRANSFER TO PSYCH HOSP/UNIT Condition: Serious
[2024-05-22 17:54] LABS: Glucose,Whole Blood 77 mg/dL (70-110)
[2024-05-22 18:19] LABS: Basophils # (A) 0.1 k/uL (0-0.2); Basophils % (A) 1 %; Eosinophils # (A) 0.3 k/uL (0-0.7); Eosinophils % (A) 5 %; HCT 37.2 % (34.0-46.0); HGB 12.1 gm/dL (11.4-16.0); Lymphocytes # (A) 1.9 k/uL (1.0-4.8); Lymphocytes % (A) 28 %; MCH 31.2 pg (25.0-35.0); MCHC 32.5 g/dL (31.0-37.0); MCV 96.2 fL (80.0-100.0); Mean Platelet Volume 6.6; Monocytes # (A) 0.4 k/uL (0-1.0); Monocytes % (A) 6 %; Neutrophils % (A) 58 %; Platelet Count 288 k/uL (150-450); RBC 3.87 m/uL (3.80-5.40); RDW 14.2 % (11.5-15.5)
[2024-05-22 18:28] LABS: ALT 19 U/L (4-34); AST 32 U/L (14-36); Acetaminophen <10.0 ug/mL; African American GFR (CKD) 84 (>60 ml/min/1.73 sqM); Albumin 4.4 g/dL (3.5-5.0); Alkaline Phosphatase 125 U/L (38-126); Anion Gap 9 mmol/L; Blood Urea Nitrogen 13 mg/dL (7-17); Carbon Dioxide 29 mmol/L (22-30); Chloride 101 mmol/L (98-107); Glucose 79 mg/dL (74-99); Magnesium 1.9 mg/dL (1.6-2.3); Non-African American GFR(CKD) 73 (>60 ml/min/1.73 sqM); Potassium 3.6 mmol/L (3.5-5.1); Salicylate 1.4 mg/dL; Sodium 139 mmol/L (137-145); Total Bilirubin 0.4 mg/dL (0.2-1.3); Total Protein 7.3 g/dL (6.3-8.2)
[2024-05-22 18:29] LABS: Lactic Acid, Venous 1.8 mmol/L (0.7-2.0)
[2024-05-22 18:30] LABS: Alcohol 84 mg/dL; Amphetamine Screen,Urine Detected (NotDetected); Barbiturate Screen,Urine Not Detected (NotDetected); Benzodiazepines Screen,Urine Not Detected (NotDetected); Cocaine Screen,Urine Not Detected (NotDetected); Methadone Screen, Urine Not Detected (NotDetected); Opiate Screen,Urine Not Detected (NotDetected); Oxycodone Screen, Urine Not Detected (NotDetected); Phencyclidine Screen,Urine Not Detected (NotDetected); Tricyclic Antidepressant,Urine Not Detected (NotDetected); Urn Cannabinoid Scrn Detected (NotDetected)
[2024-05-22 18:40] LABS: INR 0.9 (<1.2); Partial Thromboplastin Time 25.8 sec (22.0-30.0); Prothrombin Time 9.8 sec (10.0-12.5)
--- NOTE | 2024-05-22 18:45 | CT ---
EXAMINATION TYPE: CT brain wo con DATE OF EXAM: 05/22/2024 COMPARISON: None INDICATION: OVERDOSE DLP: 1224.4 mGycm, Automated exposure control for dose reduction was used. CONTRAST: None CT of the brain is performed utilizing 3 mm thick sections through the posterior fossa and 3 mm thick sections through the remaining calvarium. Study is performed within 24 hours of arrival to the hosp [facility]. No abnormal hyperdensity is present to suggest an acute intracranial hemorrhage. No mass lesion is evident. No acute infarcts are evident. Ventricles and sulci are appropriate for the patient age. Paranasal sinuses and mastoid air cells within the [id number] are clear. There is hyperostosis frontalis internus, a normal variant. IMPRESSION: 1. No acute intracranial process. Follow-up MRI can be performed as clinically indicated.
[2024-05-23] MEDS ORDERED: ALBUTEROL NEBULIZED 2.5 MG/3 ML INHALATION PRN ×3 (10:24→16:27)
[2024-05-23] MEDS: ALBUTEROL HFA INHALER INHALATION PRN (10:37)
[2024-05-23] MEDS ORDERED: POTASSIUM CHLORIDE ER 10 MEQ TAB.ER.PRT PO PRN (15:23)
[2024-05-23] MEDS ORDERED: FUROSEMIDE 20 MG TAB PO PRN ×2 (15:23→16:30)
[2024-05-23] MEDS: ZIPRASIDONE 20 MG VIAL IM STA (15:32)
[2024-05-23] MEDS: NICOTINE 21MG/24HR PATCH TRANSDERM STA (15:32)
[2024-05-23] MEDS ORDERED: ACETAMINOPHEN TAB 325 MG TAB PO PRN (16:21)
[2024-05-23] MEDS ORDERED: MAGNESIUM HYDROXIDE 2,400 MG/30 ML CUP PO PRN (16:21)
[2024-05-23] MEDS ORDERED: MAG HYDROX/AL HYDROX/SIMETH 355 ML BOTTLE PO PRN (16:21)
[2024-05-23] MEDS ORDERED: haloperidoL 5 MG TAB PO PRN (16:21)
[2024-05-23] MEDS ORDERED: LORazepam 2 MG/ML INJ IM PRN (16:21)
[2024-05-23] MEDS: NON FORMULARY DRUG (Buprenorphine Hcl/Naloxone Hcl [Suboxone 8 Mg-2 Mg Sl Film] 1 EACH Fil SUBLINGUAL SCH (16:34)
[2024-05-23] MEDS: LEVOTHYROXINE 88 MCG TAB PO SCH (19:05)
--- NOTE | 2024-05-23 20:44 | P.MDCNMH ---
History of Present Illness H&P Date: 05/23/24 Chief Complaint: medical evaluation Patient is a 54-year-old female with PMH of COPD, hypertension and psychiatric issues such as depression and anxiety is seen for medical evaluation. Patient presented to the ER on 05/22/2024 via EMS for altered mental status patient took 5 to 10 pills of her Ambien medication. Patient is patient is currently admitted in the mental health unit for evaluation of her possible suicide attempt. At the time of the interview, patient is very sleepy and groggy and was difficult to get the history and perform physical examination. Patient, however, complains of lower back pain status post back surgery done in 2019. Patient not sure what was the cause of her back pain. Currently, it is sharp, 8 out of 10, constant, nonradiating lower back pain without exacerbating or alleviating factors. Patient denies numbness or weakness in lower extremities. Patient denies urinary or bowel incontinence. Patient reports taking ibuprofen as needed for pain with minimal relief. Patient is also complaining of purulent vaginal discharge with "bad smell" since 1 week. Patient reported that is constant. Denies being sexually active within the last 6 months. Denies abdominal pain, vaginal itchiness and vaginal bleeding. Patient otherwise denies shortness of breath, chest pain, diarrhea or constipation. EKG done in the ER shows sinus rhythm with heart rate of 90 bpm, normal NJ interval 176 ms. Right bundle branch block with widened QRS in lead I/aVL/V4/V5/V6. QTc [address] brain shows no acute intracranial process. No mass lesion or no acute infarcts identified. Review of systems: Pertinent positives and negatives as discussed in HPI, a complete review of systems was performed and all other systems are negative. Social history: Tobacco: 1 pack/day x 30 years Alcohol: Occasionally heavy drinking Recreational drugs: Marijuana and methamphetamine Travel: None Occupation: None Family History: Noncontributory Physical examination: Vital signs reviewed General: Sleepy, non toxic, no distress, appears older than stated age, morbidly obese Cardiovascular: S1S2 reg, no murmur, positive dorsalis pedis pulse bilateral, no edema Lungs: Inspiratory bilateral wheezing, no rhonchi, no rales, no accessory muscle use Abdominal: soft, nontender to palpation, no guarding Psych: Alert, oriented, appropriate affect Assessment/Plan: 54-year-old female with PMH of COPD, hypertension and psychiatric issues such as depression and anxiety is seen for medical evaluation. Patient has chronic lower back pain and vaginal discharge #Chronic lower back pain Continue with acetaminophen 650 mg p.o. 4 hour as needed Continue with ibuprofen 600 mg p.o. every 6 hours as needed Order x-ray of the lower back to rule out fracture or displacement #Vaginal discharge Consult WIND OPERATIONS SUPERVISOR #Bilateral wheezing, likely COPD in light of patient's smoking history Albuterol inhaler 2 puffs RT 4 times daily as needed Order prednisone 40 mg p.o. daily for 5 days #Chronic conditions: Hypertension: Continue with lisinopril 20 mg p.o. daily, hydrochlorothiazide 25 mg p.o. daily GERD: Continue with omeprazole 20 mg p.o. twice daily Hypothyroidism: Continue with levothyroxine 175 mcg p.o. 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 currently c/o vaginal discharge and foul odor. Denies possibliity of STD's. History of Any Multi-Drug Resistant Organisms: C-DIFF Date of last positivie culture/infection: UNK MDRO Source:: stool Past Surgical History: Orthopedic Surgery Additional Past Surgical History / Comment(s): thyroid removal, had an ostomy but had reversal surgery, 8 level spinal fusion Past Anesthesia/Blood Transfusion Reactions: No Reported Reaction Past Psychological History: Anxiety, Depression Smoking Status: Current every day smoker Past Alcohol Use History: Abuse, Daily, Occasional Additional Past Alcohol Use History / Comment(s): admits to drinking a fifth of whiskey Past Drug Use History: Heroin, Marijuana, Methamphetamine Additional Drug Use History / Comment(s): admits to history of heroin abuse. not used in couple of months Medications and Allergies Home Medications Medication Instructions Recorded Confirmed Type Albuterol Sulfate [Albuterol 2 puff PO RT-Q6H PRN 05/22/24 05/23/24 History Sulfate Hfa] Buprenorphine HCl/Naloxone HCl 1 film SL TID 05/22/24 05/23/24 History [Suboxone 8 mg-2 mg Sl Film] Furosemide [Lasix] 20 mg PO DAILY PRN 05/22/24 05/23/24 History Levothyroxine Sodium [Synthroid] 175 mcg PO DAILY 05/22/24 05/23/24 History Potassium Chloride ER [K-Dur 10] 10 meq PO BID PRN 05/22/24 05/23/24 History hydroCHLOROthiazide [Hydrodiuril] 25 mg PO DAILY 05/22/24 05/23/24 History lisinopriL [Zestril] 20 mg PO DAILY 05/22/24 05/23/24 History DULoxetine HCL [Cymbalta] 60 mg PO DIRECTED 05/23/24 05/23/24 History Omeprazole/Sodium Bicarbonate 1 cap PO BID 05/23/24 05/23/24 History [Zegerid 20 mg Capsule] Allergies Allergy/AdvReac Type Severity Reaction Status Date / Time No Known Allergies Allergy Verified 05/23/24 11:34 Physical Exam Vitals: Vital Signs Temp Pulse Pulse Pulse Resp BP BP 05/23/24 19:06 73 125/75 05/23/24 18:22 97.4 F L 85 22 05/23/24 13:58 79 18 145/73 05/23/24 06:00 75 16 172/100 05/23/24 05:00 91 16 129/113 05/23/24 04:00 89 16 148/86 05/23/24 03:00 92 16 136/60 05/23/24 02:00 86 165/94 05/23/24 01:00 87 153/81 05/23/24 00:22 89 170/90 05/23/24 00:00 90 163/126 05/22/24 23:00 87 163/80 05/22/24 22:38 88 24 163/80 05/22/24 22:00 84 165/93 05/22/24 21:00 87 26 H 152/90 BP Pulse Ox 05/23/24 19:06 05/23/24 18:22 206/100 96 05/23/24 13:58 96 05/23/24 06:00 96 05/23/24 05:00 97 05/23/24 04:00 95 05/23/24 03:00 97 05/23/24 02:00 100 05/23/24 01:00 99 07/19/24 00:22 99 05/23/24 00:00 99 05/22/24 23:00 99 05/22/24 22:38 98 05/22/24 22:00 98 05/22/24 21:00 99 Intake and Output 05/23/24 05/23/24 05/23/24 06:59 14:59 22:59 Other: Weight 128.82 kg Results CBC & Chem 7: 05/22/24 18:09 05/22/24 18:09 Labs: Abnormal Lab Results - Last 24 Hours (Table) 05/22/24 Range/Units 18:09 Osmolality 316 H (275-295) mOsm/kg
[2024-05-23] MEDS ORDERED: DULoxetine HCL 60 MG CAPSULE.DR PO SCH (21:00)
[2024-05-23] MEDS: hydroCHLOROthiazide 25 MG TAB PO SCH (23:21)
[2024-05-23] MEDS: lisinopriL 20 MG TAB PO SCH (23:22)
[2024-05-24] MEDS: PANTOPRAZOLE 40 MG TABLET PO SCH (06:04)
[2024-05-24] MEDS ORDERED: LEVOTHYROXINE 88 MCG TAB PO SCH ×2 (06:30)
[2024-05-24] MEDS ORDERED: SODIUM BICARBONATE TAB 650 MG TAB PO SCH (07:30)
[2024-05-24] MEDS ORDERED: PANTOPRAZOLE 40 MG TABLET PO SCH (07:30)
[2024-05-24] MEDS: FOLIC ACID 1 MG TAB PO SCH (08:55)
[2024-05-24] MEDS ORDERED: hydroCHLOROthiazide 25 MG TAB PO SCH ×2 (09:00)
[2024-05-24] MEDS ORDERED: lisinopriL 20 MG TAB PO SCH ×2 (09:00)
[2024-05-24] MEDS: predniSONE 50 MG TAB PO SCH (09:01)
[2024-05-24] MEDS: NICOTINE 21MG/24HR PATCH TRANSDERM SCH (09:01)
[2024-05-24] MEDS: THIAMINE 100 MG TAB PO SCH (09:01)
[2024-05-24] MEDS: MULTIVITAMINS, THERA 1 EACH TAB PO SCH (09:01)
[2024-05-24] MEDS: LORazepam 1 MG TAB PO PRN (09:18)
[2024-05-24] MEDS: BUPRENORPHINE-NALOX 8-2 MG TAB 1 EACH TAB.SUBL SL SCH (10:58)
--- NOTE | 2024-05-24 15:51 | P.HP ---
Psychiatric H&P - . History & Physical: Allergies Allergy/AdvReac Type Severity Reaction Status Date / Time No Known Allergies Allergy Verified 05/23/24 11:34 Vital Signs Temp 97.3 F L 05/24/24 09:10 Pulse 83 05/24/24 09:10 Resp 20 05/24/24 09:10 BP 165/91 05/24/24 09:10 Pulse Ox 96 05/23/24 18:22 FiO2 Intake & Output 05/23/24 05/24/24 05/24/24 18:59 06:59 18:59 Weight 128.82 kg 128.82 kg Laboratory Last Values WBC 7.0 k/uL (3.8-10.6) 05/22/24 18:09 RBC 3.87 m/uL (3.80-5.40) 05/22/24 18:09 Hgb 12.1 gm/dL (11.4-16.0) 05/22/24 18:09 Hct 37.2 % (34.0-46.0) 05/22/24 18:09 MCV 96.2 fL (80.0-100.0) 05/22/24 18:09 MCH 31.2 pg (25.0-35.0) 05/22/24 18:09 MCHC 32.5 g/dL (31.0-37.0) 05/22/24 18:09 RDW 14.2 % (11.5-15.5) 05/22/24 18:09 Plt Count 288 k/uL (150-450) 05/22/24 18:09 MPV 6.6 05/22/24 18:09 Neutrophils % 58 % 05/22/24 18:09 Lymphocytes % 28 % 05/22/24 18:09 Monocytes % 6 % 05/22/24 18:09 Eosinophils % 5 % 05/22/24 18:09 Basophils % 1 % 05/22/24 18:09 Neutrophils # 4.0 k/uL (1.3-7.7) 05/22/24 18:09 Lymphocytes # 1.9 k/uL (1.0-4.8) 05/22/24 18:09 Monocytes # 0.4 k/uL (0-1.0) 05/22/24 18:09 Eosinophils # 0.3 k/uL (0-0.7) 05/22/24 18:09 Basophils # 0.1 k/uL (0-0.2) 05/22/24 18:09 PT 9.8 sec (10.0-12.5) L 05/22/24 18:09 INR 0.9 (<1.2) 05/22/24 18:09 APTT 25.8 sec (22.0-30.0) 05/22/24 18:09 Sodium 139 mmol/L (137-145) 05/22/24 18:09 Potassium 3.6 mmol/L (3.5-5.1) 05/22/24 18:09 Chloride 101 mmol/L (98-107) 05/22/24 18:09 Carbon Dioxide 29 mmol/L (22-30) 05/22/24 18:09 Anion Gap 9 mmol/L 05/22/24 18:09 BUN 13 mg/dL (7-17) 05/22/24 18:09 Creatinine 0.89 mg/dL (0.52-1.04) 05/22/24 18:09 Est GFR (CKD-EPI)AfAm 84 (>60 ml/min/1.73 sqM) 05/22/24 18:09 Est GFR (CKD-EPI)NonAf 73 (>60 ml/min/1.73 sqM) 05/22/24 18:09 Glucose 79 mg/dL (74-99) 05/22/24 18:09 POC Glucose (mg/dL) 77 mg/dL (70-110) 05/22/24 17:53 POC Glu [place] Worker ID Samantha Mireles 05/22/24 17:[address] Glu mg/dL 108 mg/dL 05/22/24 18:09 Hemoglobin A1c 5.4 % (<=6.0) 05/22/24 18:09 Osmolality 316 mOsm/kg (275-295) H 05/22/24 18:09 Plasma Lactic Acid William 1.8 mmol/L (0.7-2.0) 05/22/24 18:09 Calcium 9.0 mg/dL (8.4-10.2) 05/22/24 18:09 Magnesium 1.9 mg/dL (1.6-2.3) 05/22/24 18:09 Total Bilirubin 0.4 mg/dL (0.2-1.3) 05/22/24 18:09 AST 32 U/L (14-36) 05/22/24 18:09 ALT 19 U/L (4-34) 05/22/24 18:09 Alkaline Phosphatase 125 U/L (38-126) 05/22/24 18:09 Ammonia <9 umol/L (<30) 05/22/24 18:09 Total Protein 7.3 g/dL (6.3-8.2) 05/22/24 18:09 Albumin 4.4 g/dL (3.5-5.0) 05/22/24 18:09 Salicylates 1.4 mg/dL 05/22/24 18:09 Urine Opiates Screen Not Detected (NotDetected) 05/22/24 18:09 Ur Oxycodone Screen Not Detected (NotDetected) 05/22/24 18:09 Urine Methadone Screen Not Detected (NotDetected) 05/22/24 18:09 Acetaminophen <10.0 ug/mL 05/22/24 18:09 Ur Barbiturates Screen Not Detected (NotDetected) 05/22/24 18:09 U Tricyclic Antidepress Not Detected (NotDetected) 05/22/24 18:09 Ur Phencyclidine Scrn Not Detected (NotDetected) 05/22/24 18:09 Ur Amphetamines Screen Detected (NotDetected) H 05/22/24 18:09 U Methamphetamines Scrn Detected (NotDetected) H 05/22/24 18:09 U Benzodiazepines Scrn Not Detected (NotDetected) 05/22/24 18:09 Urine Cocaine Screen Not Detected (NotDetected) 05/22/24 18:09 U Marijuana (THC) Screen Detected (NotDetected) H 05/22/24 18:09 Serum Alcohol 84 mg/dL 05/22/24 18:09 SARS-CoV-2 (PCR) Not Detected (Not Detectd) 05/23/24 10:04 IDENTIFYING DATA: Ms Villela is a 54 year old homeless female who is admitted for SI and med noncompliance HPI: Per chart, Ms Villela overdosed on Ambien in a suicide attempt and was [place] sleeping at the [place] stop. She was brought to the ER where she attempted to elope multiple times eventually resulting in IM shot. Per staff, patient has been agitated all day demanded discharge. She states that the cert says that she does not need to be in the hospital, therefore, she needs to be discharged. SHe threatens to chrissy if not discharged. She denies SI, HI, AVH. PAST PSYCHIATRIC HISTORY: is on suboxone (confirmed by pharmacy), no admissions, prescribed cymbalta but has been noncompliant PMH: as per ER ALLERGIES: as per EMR CHEMICAL DEPENDENCY HISTORY: occasional heavy drinking, marijuana, methamphetamines SOCIAL HISTORY: homeless, unemployed, no legal issues MENTAL STATUS EXAM: General Appearance: Patient appears to be older than stated age, agitated, overweight Behavior: agitated, uncoopearative, demanding Speech: loud Mood/Affect: agitated, constricted Suicidality/Homicidality: denies SI/HI Perceptions: Patient denies any visual hallucinations [and denies any auditory hallucinations] Though content/process: [There is no evidence of any delusional thought content and thought process is linear and goal-directed.] Memory and concentration: AOX3, grossly intact for the purposes of this session Judgment and insight: [poor] STRENGTHS/WEAKNESSES: strength is that patient is [resilient]. Weakness is that patient [has poor judgment and is impulsive] INTELLECT: [below average] IMPRESSIONS: Depression unspecified (possibly substance induced) Cannibis use disorder Stimulant use disorder PLAN: -Patient is admitted under [involuntary] status to MHU for stabilization of psychiatric symptoms and safety. Cert completed. Second cert to be done on Sunday by primary team. -Medications : suboxone 8-2 mg tid -Ativan [and Haldol PRN for agitation/aggression -Patient was informed of the risks, benefits and side effects of the medication -Internal Medicine consult to perform medical evaluation and physical. -NRT -SW on board for discharge planning. Encourage patient to participate in groups to work on coping skills.
[2024-05-24] MEDS: metroNIDAZOLE 500 MG TAB PO SCH (21:04)
[2024-05-25] MEDS: LORazepam 1 MG TAB PO PRN ×2 (00:30→08:47)
[2024-05-25 11:35] LABS: Chol/HDL Ratio 4.25 Ratio; LDL Cholesterol,Calculated 185.3 mg/dL (0.0-131.0)
[2024-05-25 11:53] LABS: Appearance,Urine Turbid (Clear); Bilirubin,Urine Negative (Negative); Blood,Urine Large (Negative); Color,Urine Yellow; Glucose,Urine (UA) Negative (Negative); Ketones,Urine Negative (Negative); Leukocyte Esterase,Urine Large (Negative); Mucus,Urine Few /hpf; Nitrite,Urine Positive (Negative); PH, Urine 6.5 (5.0-8.0); Protein,Urine 2+ (Negative); RBC,Urine 89 /hpf (0-5); Specific Gravity,Urine 1.018 (1.001-1.035); Squamous Epithelial Cell,Urine 1 /hpf (0-4); Urobilinogen,Urine <2.0 mg/dL (<2.0); WBC,Urine >182 /hpf (0-5)
--- NOTE | 2024-05-25 15:05 | P.PN ---
Progress Note - Text Interval history: Patient was seen and was directable and agreeable to speak with commercial insurance underwriter. continues to state that she does not need to be in the hospital. He verbalizes a very long list of complaints. States that she is overweight and she does spells and lines up the son and the cole. She also states that the food that she got was people that were ground up and blushed into sausage. At this time patient denies any suicidal or homicidal ideations intent or plan. Denies any Auditory or visual hallucinations. Patient denies any side effects from the medications and has been compliant with meds. Mental status exam: General Appearance: [Patient appears to be older thanstated age is alert, directable, and cooperative.] Behavior: irritable Speech: Patient's speech is fluent and nonpressured. Mood/Affect: Mood is improving mildly, affect is congruent and constricted. Suicidality/Homicidality: Patient denies having any suicidal or homicidal ideation intent or plan. Perceptions: Patient denies any auditory or visual hallucinations. Though content/process: states that she is awake, some paranoid delusions also was elicited Memory and concentration: AOX3, grossly intact for the purposes of this session Judgment and insight: poor Assessment/Plan: psychosis unspecified. Patient continues to meet criteria for inpatient psychiatric admission for symptom stabilization and safety. start Risperdal 1 mg twice a day. Continue other medications. Monitor for medication compliance and for any psychotropic medication side effects. Will continue to monitor ongoing response to treatment. Encouraged participation in milieu.
[2024-05-25 19:28] LABS: Appearance,Urine Cloudy (Clear); Bilirubin,Urine Negative (Negative); Blood,Urine Moderate (Negative); Color,Urine Yellow; Glucose,Urine (UA) Negative (Negative); Ketones,Urine Negative (Negative); Leukocyte Esterase,Urine Large (Negative); Nitrite,Urine Positive (Negative); Protein,Urine 2+ (Negative); RBC,Urine 3 /hpf (0-5); Specific Gravity,Urine 1.016 (1.001-1.035); Squamous Epithelial Cell,Urine <1 /hpf (0-4); Triple Phosphate Crystal,Urine Many /hpf; Urobilinogen,Urine <2.0 mg/dL (<2.0); WBC,Urine 5 /hpf (0-5)
[2024-05-25] MEDS: NITROFURANTOIN MONOHYD/M-CRYST 100 MG CAP PO SCH (21:38)
[2024-05-25] MEDS: risperiDONE 1 MG TAB PO SCH (21:39)
[2024-05-26] MEDS: diphenhydrAMINE 25 MG CAP PO STA (06:12)
[2024-05-26 14:35] LABS: T4, Free (Free Thyroxine) 1.12 ng/dL (0.78-2.19)
--- NOTE | 2024-05-26 21:18 | P.PN ---
Progress Note - Text Progress Note Date: 05/26/24 Follow-up Mediation Review Chief Complaint: I dont know why I am here. Subjective: The patient noted that she came here without knowing that I was being transported to [facility]. The patient noted that she was at the bus terminal and got vey thirsty. She was given some soda water by a man after that she passed out and woke up in this hospital. She thinks that he got water, which was mixed with something. She remembers saying somethings in the ER, which must have sounded like babbling. She knows that she is on antipsychotic, Risperdal. She is refusing to take it because it is an antipsychotic and she has no psychosis. She noted that her problem is homelessness. She admitted to taking Cymbalta and Suboxone. The patient has not been attending the groups. The participation is limited. The interaction with staff and peers is limited. The patient is not compliant with treatment recommendations. Leading questions: The patient denied Depression and Anxiety. Denied SI or HI. Denied symptoms consistent with psychosis Sleep and Appetite: Fair Change in family/ living/job/financial/daily routine: No change. Change in medical condition: No change. Change in medications: No change. Side effects from Medications: None. Objective- MSE: Alert and attentive. Orientation times three. Dressed and Groomed: Appropriately. Pleasant and cooperative. Psychomotor Activity: Normal. Speech: Normal in tone, quality, and quantity. Mood: I am fine. Affect: Appropriate. SI or HI: None. Perceptual disturbance: None. Thought Content: No paranoia or other delusional thinking noted. Thought Process: Normal. Cognition: Intact Judgment and Insight: Fair AIMS: Normal. Labs: No new labs. Diagnosis: Plan and Recommendations: Continue current Medications. Monitor MS and side effects of medications and adjust medications accordingly. Provide supportive psychotherapy. The patient provided psychoeducation and advised The patient provided Substance abuse counseling. Smoke cessation therapy. The patient to attend carrasco activities. Medication Consent with explanation of risk/benefits and side effects: Explained and obtained.
[2024-05-26] MEDS: NICOTINE GUM (POLACRILEX) 2 MG GUM BUCCAL PRN (22:40)
[2024-05-27] MEDS: ALBUTEROL INHALER 60 PUFF/8 GM INHALER (MHU) INHALATION PRN (12:17)
[2024-05-27] MEDS ORDERED: hydrOXYzine pamoate 25 MG CAP PO PRN (14:12)
[2024-05-27] MEDS: LORazepam 2 MG/ML INJ IM PRN (15:16)
[2024-05-27] MEDS: HALOPERIDOL LACTATE 5 MG/ML 1 ML VIAL IM PRN (15:16)
--- NOTE | 2024-05-27 15:58 | P.PN ---
Progress Note - Text Progress Note Date: 05/27/24 Follow-up Mediation Review Chief Complaint: I need to be discharged. Subjective: The patient noted that she needs to be discharged right away. She stated that she does not belong here. She has been refusing to take medications. The patient stated that she takes her other medications but wont take any psychiatric medications because nothing is wrong with her. As per the social work, her sons girlfriend said that the patient told her that she wants to kill herself. She came to ER for taking excessive Ambien and passing out. The patient disputes taking Ambien. The patient does not believe that she has any psychiatric illness. She states that her problems is being homeless. The patient gets angry easily and displays aggressive behavior. She is unpredictable and impulsive. The patient has been attending the groups. The participation is limited. The interaction with staff and peers is limited. The patient is not non-compliant with psychotropic medications. medications. Leading questions: The patient denied Depression and Anxiety. Denied SI or HI. Denied symptoms consistent with psychosis Sleep and Appetite: Fair Change in family/ living/job/financial/daily routine: No change. Change in medical condition: No change. Change in medications: No change. Side effects from Medications: None. Allergies: No change. Objective- MSE: Alert and attentive. Orientation times three. Dressed and Groomed: Appropriately. Pleasant and cooperative. Psychomotor Activity: Normal. Speech: Normal in tone, quality, and quantity. Mood: Angry and upset. Affect: Agitated and irritable. SI or HI: None. Perceptual disturbance: None. Thought Content: No paranoia or other delusional thinking noted. Thought Process: Normal. Cognition: Intact Judgment and Insight: Poor. AIMS: Normal. Labs: No new labs. Diagnosis: No change Plan and Recommendations: Continue current Medications. Encourage patient to take medications. Provide supportive psychotherapy. The patient provided psychoeducation and advised The patient provided Substance abuse counseling. Smoke cessation therapy. The patient to attend carrasco activities. Medication Consent with explanation of risk/benefits and side effects: Explained and obtained.
[2024-05-28] MEDS ORDERED: LORazepam 1 MG TAB PO PRN (12:11)
[2024-05-28] MEDS ORDERED: LORazepam 1 MG TAB PO SCH (13:00)
--- NOTE | 2024-05-28 16:22 | P.PN ---
Progress Note - Text Progress Note Date: 05/28/24 Follow-up Mediation Review Chief Complaint: I need to be discharged. Subjective: The patient noted that she needs to be discharged right away. She has been displaying hostile aggressive and disruptive behavior. She gets angry if her demands are not immediately met. She manipulates and is selective in what she wants. She refuses to participate in carrasco milieu. She selects what medications she wants and what she does not want. She is not taking Risperdal stating that she is not psychotic. She declined to take any antidepressants stating she is not depressed. She taking all her other medications including Ativan. She refused to sign medication consent form. The patient gets angry if things dont go her was and displays aggressive and impulsive behavior. The patient has not displayed any hallucinatory behavior since the admission. No paranoia and other delusions have been noticed by the staff on the carrasco. She has not reported any depression. She has taken Ativan for anxiety. The patient has been attending the groups. The participation is limited. The interaction with staff and peers is limited. The patient is not non-compliant with psychotropic medications. medications. Leading questions: The patient denied Depression and Anxiety. Denied SI or HI. Denied symptoms consistent with psychosis Sleep and Appetite: Good. Change in family/ living/job/financial/daily routine: No change. Change in medical condition: No change. Change in medications: No change. Side effects from Medications: None. Allergies: No change. Objective- MSE: Alert and attentive. Orientation times three. Dressed and Groomed: Appropriately. Pleasant and cooperative. Psychomotor Activity: Normal. Speech: Normal in tone, quality, and quantity. Mood: I am fine. Affect: Consistent with mood. SI or HI: None. Perceptual disturbance: None. Thought Content: No paranoia or other delusional thinking noted. Thought Process: Normal. Cognition: Intact Judgment and Insight: Poor. AIMS: Normal. Labs: No new labs. Diagnosis: No change Plan and Recommendations: Continue current Medications. Encourage patient to take medications. Provide supportive psychotherapy. The patient provided psychoeducation and advised The patient provided Substance abuse counseling. Smoke cessation therapy. The patient to attend carrasco activities. Medication Consent with explanation of risk/benefits and side effects: Explained and obtained.
[2024-05-28] MEDS: LORazepam 1 MG TAB PO PRN (18:10)
[2024-05-29] MEDS: IBUPROFEN 600 MG TAB PO PRN (20:00)
[2024-05-29] MEDS: DULoxetine HCL 60 MG CAPSULE.DR PO SCH (21:26)
[2024-05-29] MEDS: lisinopriL 20 MG TAB PO SCH (21:26)
[2024-05-30 09:53] VITALS: BP 114/78; PULSE 94; RESP 18; TEMP 97.6
--- NOTE | 2024-05-30 15:36 | P.DS ---
Providers Date of admission: 05/23/24 15:35 Expected date of discharge: 05/30/24 Attending physician: Matty Carrion MD Consults: 05/23/24 16:21 Consult Physician Routine Consulting Provider: Ena Billingsley Consult Reason/Comments: H & P w/medical management Do you want consulting provider notified?: Yes 05/24/24 01:58 Consult Physician Urgent Consulting Provider: Lisa Carcamo Consult Reason/Comments: vaginal discharge Do you want consulting provider notified?: Yes Primary care physician: Stated None - Discharge Diagnosis(es) (1) Depression, unspecified Status: Acute Priority: High (2) Stimulant abuse Status: Acute Priority: Medium (3) Marijuana abuse Status: Acute Priority: Medium Hospital Course: Discharge Summary HPI: IDENTIFYING DATA: Ms Villela is a 54-year-old homeless female who is admitted for SI and med noncompliance HPI: Per chart the petition, Ms. Villela overdosed on Ambien in a suicide attempt and was found sleeping at the bus stop. She was brought to the ER where she attempted to elope multiple times eventually resulting in IM shot. Per staff, patient has been agitated all day demanded discharge. She states that the cert says that she does not need to be in the hospital, therefore, she needs to be discharged. She threatens to chrissy if not discharged. She denies SI, HI, AVH. During the evaluation, on the unit, the patient denied making a suicidal attempt. She noted that she was at the bus terminal when somebody gave a soda drink to drink because she was too thirsty. Following which, the patient does not remember anything. She woke-up in the hospital. No Ambien was delectated in the urine toxicology. She denied feeling depressed, suicidal, or homicidal. She denied SI or HI. She denied any symptoms consistent with psychosis. The patient noted that she takes Cymbalta for pain. PAST PSYCHIATRIC HISTORY: is on suboxone (confirmed by pharmacy), no admissions, prescribed Cymbalta but has been noncompliant PMH: as per ER ALLERGIES: as per EMR CHEMICAL DEPENDENCY HISTORY: occasional heavy drinking, marijuana, methamphetamines Hospital Course: After admission, the patient was involved in pharmacotherapy, carrasco milieu, and individual psychodynamic psychotherapy. The patient was started on her medications including Cymbalta. The dose was titrated to obtain the desire ef fects. The patient tolerated medications well without any side effects. The patient was also involved in carrasco activities. The patient attended the groups and participated well. The patient interacted with peers and staff well. The patient slowly started showing improvement. The hospital course was uneventful. The patient symptoms of depression, suicidal and homicidal ideations abated. The psychosis improved. The patient was stable to be discharged to out-patient care. The patient did not have any guns or weapons in possession at home. MSE: General Appearance: Patient appears to be older than stated age, agitated, overweight Behavior: agitated, uncoopearative, demanding Speech: loud Mood/Affect: agitated, constricted Suicidality/Homicidality: denies SI/HI Perceptions: Patient denies any visual hallucinations [and denies any auditory hallucinations] Though content/process: [There is no evidence of any delusional thought content and thought process is linear and goal-directed.] Memory and concentration: AOX3, grossly intact for the purposes of this session Judgment and insight: [poor] STRENGTHS/WEAKNESSES: strength is that patient is [resilient]. Weakness is that patient [has poor judgment and is impulsive] INTELLECT: [below average] IMPRESSIONS: Depression unspecified (possibly substance induced) Cannibis use disorder Stimulant use disorder Plan: The patient to be discharged today. The patient has attained good improvement since admission. He is stable to be followed as an outpatient. The patient is not suicidal or Homicidal. He does not pose any harm to self or others. The patient remains at a greater risk of self-harm or harm to others than general population on a chronic basis due to psychiatric illness and substance abuse. The patient will continue taking following medication post discharge. The importance of medication compliance and maintaining regular appointments at psychiatric out-pt and PCP clinic was explained and encouraged. The patient was also advised to seek alcohol counseling and attend AA/NA meetings. The understood and agreed with the recommendations. line assembly utility worker to arrange for and conduct family meeting to ensure safety upon discharge and answer any questions. The social worker palliative care to arrange for patients follow-up appointments at [facility] for psychiatric care along with follow-up with PCP. The patient provided psychoeducation. Advised to call 911 or go to nearest ED or call this hospital in case of acute worsening of symptomatology, severe side effects or having suicidal, homicidal thoughts and feeling unsafe at home. Health Concerns: Follow up with PCP in 6 weeks to follow TSH levels and treatment. Patient Condition at Discharge: Serious Plan - Discharge Summary Discharge Rx Participant: No New Discharge Prescriptions: New metroNIDAZOLE [Flagyl] 500 mg PO BID 1 Days #1 tab Multivitamins, Thera [Multivitamin (formulary)] 1 each PO DAILY tab Folic Acid 1 mg PO DAILY tab Nitrofurantoin Monohyd/M-Cryst [Macrobid] 100 mg PO BID cap hydrOXYzine pamoate [Vistaril] 50 mg PO Q6HR PRN 15 Days #15 cap PRN Reason: Anxiety Thiamine [Vitamin B-1] 100 mg PO DAILY tab Nitrofurantoin Monohyd/M-Cryst [Macrobid] 100 mg PO Q12HR 5 Days #10 cap Continue hydroCHLOROthiazide [Hydrodiuril] 25 mg PO DAILY Furosemide [Lasix] 20 mg PO DAILY PRN PRN Reason: Edema Buprenorphine HCl/Naloxone HCl [Suboxone 8 mg-2 mg Sl Film] 1 film SL TID DULoxetine HCL [Cymbalta] 60 mg PO DIRECTED Omeprazole/Sodium Bicarbonate [Zegerid 20 mg Capsule] 1 cap PO BID 15 Days #30 cap lisinopriL [Zestril] 20 mg PO DAILY 15 Days #15 tab Albuterol Sulfate [Albuterol Sulfate Hfa] 2 puff PO RT-Q6H PRN PRN Reason: Shortness Of Breath Potassium Chloride ER [K-Dur 10] 10 meq PO BID PRN PRN Reason: takes with Lasix Levothyroxine Sodium [Synthroid] 175 mcg PO DAILY 15 Days #15 tab Discharge Medication List Albuterol Sulfate [Albuterol Sulfate Hfa] 2 puff PO RT-Q6H PRN 05/22/24 [History] Buprenorphine HCl/Naloxone HCl [Suboxone 8 mg-2 mg Sl Film] 1 film SL TID 05/22/24 [History] Furosemide [Lasix] 20 mg PO DAILY PRN 05/22/24 [History] Potassium Chloride ER [K-Dur 10] 10 meq PO BID PRN 05/22/24 [History] hydroCHLOROthiazide [Hydrodiuril] 25 mg PO DAILY 05/22/24 [History] DULoxetine HCL [Cymbalta] 60 mg PO DIRECTED 05/23/24 [History] Folic Acid 1 mg PO DAILY tab 05/30/24 [Rx] Levothyroxine Sodium [Synthroid] 175 mcg PO DAILY 15 Days #15 tab 05/30/24 [Rx] Multivitamins, Thera [Multivitamin (formulary)] 1 each PO DAILY tab 05/30/24 [Rx] Nitrofurantoin Monohyd/M-Cryst [Macrobid] 100 mg PO BID cap 05/30/24 [Rx] Nitrofurantoin Monohyd/M-Cryst [Macrobid] 100 mg PO Q12HR 5 Days #10 cap 05/30/24 [Rx] Omeprazole/Sodium Bicarbonate [Zegerid 20 mg Capsule] 1 cap PO BID 15 Days #30 cap 05/30/24 [Rx] Thiamine [Vitamin B-1] 100 mg PO DAILY tab 05/30/24 [Rx] hydrOXYzine pamoate [Vistaril] 50 mg PO Q6HR PRN 15 Days #15 cap 05/30/24 [Rx] lisinopriL [Zestril] 20 mg PO DAILY 15 Days #15 tab 05/30/24 [Rx] metroNIDAZOLE [Flagyl] 500 mg PO BID 1 Days #1 tab 05/30/24 [Rx] Follow up Appointment(s)/Referral(s): [place] [facility] [Outside] - 06/04/24 10:30 am (06/04 at 10:30am with Melissa) [facility] [NON-STAFF] - 1 Week Patient Instructions/Handouts: Depression (DC), Adult Overdose (ED) Activity/Diet/Wound Care/Special Instructions: Avoid the use of street drugs and alcohol. Take all medications as prescribed. When you are in need of refills on your medications, please contact your outpatient medical provider and/or outpatient psychiatrist. Please go to your scheduled outpatient appointments for aftercare treatment. If symptoms return or become worse, call the crisis line at or and/or visit the nearest emergency room for assistance. National Suicide and Crisis Lifeline - call or text 168. Discharge/Stand Alone Forms: AA Meetings Dist 22 & 24 - [facility] Discharge Disposition: HOME SELF-CARE
--- NOTE | 2024-06-01 12:10 | P.PN ---
Progress Note - Text Progress Note Date: 05/29/24 Follow-up Mediation Review Chief Complaint: I need to be discharged. Subjective: The patient noted that she needs to be discharged. The patient stated that she has out-burst when she has issues and they are not solved. She stated that she requested the staff to remove the leg rest due difficulty in wheeling the wheel chair. She does not need it because she keeps her staff on the chair and pushes the wheel chair leaning on it for comfort from behind. She uses a walker but it was not given. The leg rest is inconvenient to move around. She got upset no one was removing it. Due to frustration after difficulty reaching the phone both and having an accident due the leg rest, she a threw a temper tantrum. Once this was resolved she was perfectly calm. During this visit patient was perfectly calm and held a meaningful goal directed conversation. She usually stays in [facility] after she get her SSD around $1600 on the third of the month. She wants to move back to [place] when it gets cooler there. She is focused about her plans and stated that she should not have been in the hospital. The patient has been attending the groups. The participation is limited. The interaction with staff and peers is adequate. The patient is compliant with psychotropic medications. medications. She is on Cymbalta 60 mg. She takes it for pain. She knows that it is an antidepressant too but she vehemently denied being depressed, worthless, hopeless suicidal or homicidal. Leading questions: The patient denied Depression and Anxiety. Denied SI or HI. Denied symptoms consistent with psychosis Sleep and Appetite: fair. Change in family/ living/job/financial/daily routine: No change. Change in medical condition: No change. Change in medications: No change. Side effects from Medications: None. Allergies: No change. Objective- MSE: Alert and attentive. Orientation times three. Dressed and Groomed: Appropriately. Pleasant and cooperative. Psychomotor Activity: Normal. Speech: Normal in tone, quality, and quantity. Mood: I am fine. Affect: Consistent with mood. SI or HI: None. Perceptual disturbance: None. Thought Content: No paranoia or other delusional thinking noted. Thought Process: Normal. Cognition: Intact Judgment and Insight: Intact AIMS: Normal. Labs: No new labs. Diagnosis: No change. Plan and Recommendations: Continue current Medications. Provide supportive psychotherapy. The patient provided psychoeducation and advised The patient provided Substance abuse counseling. Smoke cessation therapy. The patient to attend carrasco activities. Medication Consent with explanation of risk/benefits and side effects: Explained and obtained.
== END 2024-05-30 14:02 | disposition home or self-care (01) | DRG 881 ==
LOC: EC 17:32 → 3MHU 05-23 15:35
PROVIDERS: ADMIT Psychiatry & Neurology Psychiatry; ATTEND Psychiatry & Neurology Psychiatry
DX: F32.A Depression, unspecified (principal); Z59.00 Homelessness unspecified; F15.10 Other stimulant abuse, uncomplicated; T42.6X2A Poisoning by other antiepileptic and sedative-hypnotic drugs, intentional self-harm, initial encounter; F12.10 Cannabis abuse, uncomplicated; G89.29 Other chronic pain; N89.8 Other specified noninflammatory disorders of vagina; K21.9 Gastro-esophageal reflux disease without esophagitis; J44.89 Other specified chronic obstructive pulmonary disease; I10 Essential (primary) hypertension; F41.9 Anxiety disorder, unspecified; I45.10 Unspecified right bundle-branch block; M54.50 Low back pain, unspecified; F17.210 Nicotine dependence, cigarettes, uncomplicated; F17.290 Nicotine dependence, other tobacco product, uncomplicated; F10.10 Alcohol abuse, uncomplicated; E89.0 Postprocedural hypothyroidism; I99.8 Other disorder of circulatory system; G62.9 Polyneuropathy, unspecified; M48.00 Spinal stenosis, site unspecified; M19.90 Unspecified osteoarthritis, unspecified site; Z92.21 Personal history of antineoplastic chemotherapy; Z28.310 Unvaccinated for COVID-19; Z11.52 Encounter for screening for COVID-19; Z85.048 Personal history of other malignant neoplasm of rectum, rectosigmoid junction, and anus; Z98.1 Arthrodesis status; Z91.148 Patient's other noncompliance with medication regimen for other reason; Z79.899 Other long term (current) drug therapy; Z79.890 Hormone replacement therapy; Z56.0 Unemployment, unspecified; Z92.3 Personal history of irradiation; Z71.51 Drug abuse counseling and surveillance of drug abuser; Z71.6 Tobacco abuse counseling
CPT/HCPCS: 36415; 70450; 80053; 80061; 80143; 80179; 80306; 80320; 81001; 82140; 83036; 83605; 83735; 83930; 84439; 84443; 85025; 85610; 85730; 87635; 93005; 96372; 99285

== ENCOUNTER 2024-05-30 19:27 | Emergency (ER) | payer MEDICARE, OTHER ==
[2024-05-30 19:50] VITALS: TEMP 97.5
[2024-05-30] MEDS: SODIUM CHLORIDE 0.9% 1,000 ML IV STA (22:13)
[2024-05-30 22:42] LABS: Basophils # (A) 0.1 k/uL (0-0.2); Basophils % (A) 1 %; Eosinophils # (A) 0.4 k/uL (0-0.7); Eosinophils % (A) 4 %; HCT 38.8 % (34.0-46.0); HGB 12.5 gm/dL (11.4-16.0); Hypochromasia Moderate; Lymphocytes # (A) 1.5 k/uL (1.0-4.8); Lymphocytes % (A) 15 %; MCH 31.3 pg (25.0-35.0); MCHC 32.2 g/dL (31.0-37.0); MCV 97.4 fL (80.0-100.0); Mean Platelet Volume 7.4; Monocytes # (A) 0.5 k/uL (0-1.0); Monocytes % (A) 6 %; Neutrophils # (A) 7.2 k/uL (1.3-7.7); Neutrophils % (A) 74 %; Platelet Count 195 k/uL (150-450); RBC 3.99 m/uL (3.80-5.40); RDW 14.1 % (11.5-15.5); WBC 9.8 k/uL (3.8-10.6)
[2024-05-31 02:06] LABS: Appearance,Urine Clear (Clear); Bacteria,Urine Rare /hpf; Bilirubin,Urine Negative (Negative); Blood,Urine Negative (Negative); Color,Urine Light Yellow; Glucose,Urine (UA) Negative (Negative); Hyaline Casts,Urine 11 /lpf (0-2); Ketones,Urine Negative (Negative); Leukocyte Esterase,Urine Moderate (Negative); Mucus,Urine Rare /hpf; Nitrite,Urine Negative (Negative); PH, Urine 5.5 (5.0-8.0); Protein,Urine Negative (Negative); RBC,Urine 1 /hpf (0-5); Squamous Epithelial Cell,Urine <1 /hpf (0-4); Urobilinogen,Urine <2.0 mg/dL (<2.0); WBC,Urine 19 /hpf (0-5)
[2024-05-31 02:12] LABS: Amphetamine Screen,Urine Not Detected (NotDetected); Barbiturate Screen,Urine Not Detected (NotDetected); Benzodiazepines Screen,Urine Detected (NotDetected); Cocaine Screen,Urine Not Detected (NotDetected); Methadone Screen, Urine Not Detected (NotDetected); Opiate Screen,Urine Not Detected (NotDetected); Oxycodone Screen, Urine Not Detected (NotDetected); Phencyclidine Screen,Urine Not Detected (NotDetected); Tricyclic Antidepressant,Urine Not Detected (NotDetected); Urn Cannabinoid Scrn Detected (NotDetected)
[2024-05-31 02:51] LABS: ALT 19 U/L (4-34); AST 32 U/L (14-36); Acetaminophen <10.0 ug/mL; African American GFR (CKD) 77 (>60 ml/min/1.73 sqM); Albumin 4.4 g/dL (3.5-5.0); Alcohol 15 mg/dL; Alkaline Phosphatase 97 U/L (38-126); Anion Gap 9 mmol/L; Blood Urea Nitrogen 30 mg/dL (7-17); Calcium 8.9 mg/dL (8.4-10.2); Carbon Dioxide 26 mmol/L (22-30); Chloride 103 mmol/L (98-107); Glucose 80 mg/dL (74-99); Non-African American GFR(CKD) 66 (>60 ml/min/1.73 sqM); Potassium 4.2 mmol/L (3.5-5.1); Salicylate <1.0 mg/dL; Sodium 138 mmol/L (137-145); Total Bilirubin 0.5 mg/dL (0.2-1.3)
--- NOTE | 2024-05-31 03:49 | XR ---
EXAM: XR Lumbosacral Spine, 2 or 3 Views CLINICAL HISTORY: ITS.REASON XR Reason: fall TECHNIQUE: Frontal and lateral views of the lumbar spine and sacrum. COMPARISON: No relevant prior studies available. FINDINGS: Vertebrae: Postoperative changes of the lower thoracic and lumbar spine extending through the sacrum. Orthopedic hardware appears intact and well aligned as visualized. No acute fracture or dislocation identified likely chronic L3 vertebral body compression fracture. Sacrum/coccyx: Unremarkable as visualized. No acute fracture. Disc spaces: No acute findings. No significant narrowing. Soft tissues: Unremarkable. IMPRESSION: Postoperative changes described above Wedge-shaped compression deformity of the L3 vertebral body likely chronic in nature.
[2024-05-31 04:10] VITALS: BP 107/58; PULSE 79; RESP 18
--- NOTE | 2024-05-31 04:18 | XR ---
EXAM: XR Right Knee, 3 Views CLINICAL HISTORY: ITS.REASON XR Reason: fall TECHNIQUE: Three views of the right knee. COMPARISON: 03/21/2024 FINDINGS: Bones/joints: Tricompartmental osteoarthritis of the right knee with severe right medial compartment joint space narrowing. No acute fracture. No dislocation. Soft tissues: Unremarkable. IMPRESSION: No acute findings in the right knee. Tricompartmental osteoarthritis as above
--- NOTE | 2024-05-31 04:31 | ED ---
General Adult HPI - General Chief complaint: Recheck/Abnormal Lab/Rx Stated complaint: Pain/ETOH Time Seen by Provider: 05/30/24 20:18 Source: patient Mode of arrival: EMS Limitations: no limitations - History of Present Illness Initial comments: 54-year-old female presenting with a multitude of complaints. Patient was just discharged from . She states that while she was there she did slip and fall in the shower injuring her knee and her back. She states that she was not evaluated for this. She denies any head injury or loss of consciousness or blood thinners. When she left she did go to a friend's house and had 2 shots of alcohol. She also states that she has been having clear discharge and she is unsure if it is from her vagina or anus. She is currently homeless. No chest pain, difficulty breathing, abdominal pain, fever, chills, nausea, vomiting. - Related Data Home Medications Medication Instructions Recorded Confirmed Albuterol Sulfate [Albuterol 2 puff PO RT-Q6H PRN 05/22/24 05/23/24 Sulfate Hfa] Buprenorphine HCl/Naloxone HCl 1 film SL TID 05/22/24 05/23/24 [Suboxone 8 mg-2 mg Sl Film] Furosemide [Lasix] 20 mg PO DAILY PRN 05/22/24 05/23/24 Potassium Chloride ER [K-Dur 10] 10 meq PO BID PRN 05/22/24 05/23/24 hydroCHLOROthiazide [Hydrodiuril] 25 mg PO DAILY 05/22/24 05/23/24 DULoxetine HCL [Cymbalta] 60 mg PO DIRECTED 05/23/24 05/23/24 Previous Rx's Medication Instructions Recorded Folic Acid 1 mg PO DAILY tab 05/30/24 Levothyroxine Sodium [Synthroid] 175 mcg PO DAILY 15 Days #15 tab 05/30/24 Multivitamins, Thera [Multivitamin 1 each PO DAILY tab 05/30/24 (formulary)] Nitrofurantoin Monohyd/M-Cryst 100 mg PO BID cap 05/30/24 [Macrobid] Nitrofurantoin Monohyd/M-Cryst 100 mg PO Q12HR 5 Days #10 cap 05/30/24 [Macrobid] Omeprazole/Sodium Bicarbonate 1 cap PO BID 15 Days #30 cap 07/26/24 [Zegerid 20 mg Capsule] Thiamine [Vitamin B-1] 100 mg PO DAILY tab 05/30/24 hydrOXYzine pamoate [Vistaril] 50 mg PO Q6HR PRN 15 Days #15 cap 05/30/24 lisinopriL [Zestril] 20 mg PO DAILY 15 Days #15 tab 05/30/24 metroNIDAZOLE [Flagyl] 500 mg PO BID 1 Days #1 tab 05/30/24 Allergies Allergy/AdvReac Type Severity Reaction Status Date / Time No Known Allergies Allergy Verified 05/30/24 19:50 Review of Systems ROS Statement: Those systems with pertinent positive or pertinent negative responses have been documented in the HPI. ROS Other: All systems not noted in ROS Statement are negative. 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 currently c/o vaginal discharge and foul odor. Denies possibliity of STD's. History of Any Multi-Drug Resistant Organisms: C-DIFF Date of last positivie culture/infection: UNK MDRO Source:: stool Past Surgical History: Orthopedic Surgery Additional Past Surgical History / Comment(s): thyroid removal, had an ostomy but had reversal surgery, 8 level spinal fusion Past Anesthesia/Blood Transfusion Reactions: No Reported Reaction Past Psychological History: Anxiety, Depression Smoking Status: Current every day smoker Past Alcohol Use History: Abuse, Daily, Occasional Past Drug Use History: Heroin, Marijuana, Methamphetamine General Exam Limitations: no limitations General appearance: alert, in no apparent distress Head exam: Present: atraumatic, normocephalic Eye exam: Present: normal appearance, EOMI Neck exam: Present: normal inspection. Absent: meningismus Respiratory exam: Absent: respiratory distress Cardiovascular Exam: Present: regular rate Right Knee exam: Present: normal inspection, full ROM Neurovascular tendon exam: Present: no vascular compromise Neurological exam: Present: alert, oriented X3 Psychiatric exam: Present: normal affect, normal mood Skin exam: Present: warm, dry Course Vital Signs 05/30/24 05/30/24 05/30/24 19:46 22:36 23:53 Temperature 97.5 F L Pulse Rate 87 76 86 Respiratory 16 16 20 Rate Blood Pressure 84/58 125/96 138/77 O2 Sat by Pulse 99 97 96 Oximetry 05/31/24 04:07 Temperature Pulse Rate 79 Respiratory 18 Rate Blood Pressure 107/58 O2 Sat by Pulse 97 Oximetry Medical Decision Making - Medical Decision Making Was pt. sent in by a medical professional or institution (, PA, [employer], urgent care, hospital, or penitentiary...) When possible be specific @ -No Did you speak to anyone other than the patient for history (EMS, parent, family, police, friend...)? What history was obtained from this source @ -No Did you review nursing and triage notes (agree or disagree)? Why? @ -I reviewed and agree with nursing and triage notes Were old charts reviewed (outside hosp., previous admission, EMS record, old EKG, old radiological studies, urgent care reports/EKG's, penitentiary records)? Report findings @ -Reviewed the patient's recent admission for psychiatric care Differential Diagnosis (chest pain, altered mental status, abdominal pain women, abdominal pain men, vaginal bleeding, weakness, fever, dyspnea, syncope, headache, dizziness, GI bleed, back pain, seizure, CVA, palpatations, mental health, musculoskeletal)? @ -Differential Mental Health Depression, anxiety, bipolar, psychosis, schizophrenia, borderline personality, situational depression, adjustment disorder, behavioral disorder, brain tumor, malingering, substance abuse, encephalopathy, medication reaction, dementia, hypothyroidism, degenerative neurologic disorder, lupus.... This is not meant to be all-inclusive list EKG interpreted by me (3pts min.). @ -As above X-rays interpreted by me (1pt min.). @ -Right knee x-ray shows no acute findings. Tricompartmental osteoarthritis Lumbar spine x-ray shows postoperative changes. Wedge-shaped compression deformity of the L3 vertebral body likely chronic in nature CT interpreted by me (1pt min.). @ -None done U/S interpreted by me (1pt. min.). @ -None done What testing was considered but not performed or refused? (CT, X-rays, U/S, labs)? Why? @ -None What meds were considered but not given or refused? Why? @ -None Did you discuss the management of the patient with other professionals (professionals i.e. , PA, B[employer] IC[employer], lab, RT, psych nurse, family welfare social work professor, glass production machine operator, teacher, patient safety officer, case coordinator)? Give summary @ -No Was smoking cessation discussed for >3mins.? @ -No Was critical care preformed (if so, how long)? @ -No Were there social determinants of health that impacted care today? How? (Homelessness, low income, unemployed, alcoholism, drug addiction, transportation, low edu. Level, literacy, decrease access to med. care, [place] [facility], rehab)? @ -Homelessness, history of polysubstance use Was there de-escalation of care discussed even if they declined (Discuss DNR or withdrawal of care, Hospice)? DNR status @ -No What co-morbidities impacted this encounter? (DM, HTN, Smoking, COPD, CAD, Cancer, CVA, ARF, Chemo, Hep., AIDS, mental health diagnosis, sleep apnea, morbid obesity)? @ -None Was patient admitted / discharged? Hospital course, mention meds given and route, prescriptions, significant lab abnormalities, going to OR and other pertinent info. @ -54-year-old female presenting with a multitude of complaints. Patient was just discharged from [facility]. She states she has had 2 shots of alcohol. C omplaining of pain to the knee and lower back. Patient does seem somewhat fatigued. She is currently homeless. History and physical exam are conducted. CBC is unremarkable. BUN 30, patient received IV fluids. Urine shows rare bacteria and negative hCG. Urine toxicology positive for benzodiazepines, patient received Ativan while admitted. Also positive for marijuana. Negative salicylate, acetaminophen levels. Serum alcohol is 15. X-rays are negative for acute fracture or dislocation. On reassessment patient showed no signs of distress. She will be discharged. Follow-up with PCP. Report back to ER with any new or worsening symptoms. Discussed return parameters and answered all questions. Patient conveyed verbal understanding and agreed to the plan. I discussed this case in detail with my attending Dr. Brito Undiagnosed new problem with uncertain prognosis? @ -No Drug Therapy requiring intensive monitoring for toxicity (Heparin, Nitro, Insulin, Cardizem)? @ -No Were any procedures done? @ -No Diagnosis/symptom? @ -Follow-up Acute, or Chronic, or Acute on Chronic? @ -Acute Uncomplicated (without systemic symptoms) or Complicated (systemic symptoms)? @ -Uncomplicated Side effects of treatment? @ -No Exacerbation, Progression, or Severe Exacerbation? @ -No Poses a threat to life or bodily function? How? (Chest pain, [place], [place], pneumonia, PE, COPD, DKA, ARF, appy, cholecystitis, CVA, Diverticulitis, Homicidal, Suicidal, threat to staff... and all critical care pts) @ -Low likelihood - Lab Data Result diagrams: 05/30/24 22:33 05/31/24 02:15 Lab Results 05/30/24 05/31/24 05/31/24 Range/Units 22:33 01:56 01:56 WBC 9.8 (3.8-10.6) k/uL RBC 3.99 (3.80-5.40) m/uL Hgb 12.5 (11.4-16.0) gm/dL Hct 38.8 (34.0-46.0) % MCV 97.4 (80.0-100.0) fL MCH 31.3 (25.0-35.0) pg MCHC 32.2 (31.0-37.0) g/dL RDW 14.1 (11.5-15.5) % Plt Count 195 (150-450) k/uL MPV 7.4 Neutrophils % 74 % Lymphocytes % 15 % Monocytes % 6 % Eosinophils % 4 % Basophils % 1 % Neutrophils # 7.2 (1.3-7.7) k/uL Lymphocytes # 1.5 (1.0-4.8) k/uL Monocytes # 0.5 (0-1.0) k/uL Eosinophils # 0.4 (0-0.7) k/uL Basophils # 0.1 (0-0.2) k/uL Hypochromasia Moderate Sodium (137-145) mmol/L Potassium (3.5-5.1) mmol/L Chloride (98-107) mmol/L Carbon Dioxide (22-30) mmol/L Anion Gap mmol/L BUN (7-17) mg/dL Creatinine (0.52-1.04) mg/dL Est GFR (CKD-EPI)AfAm (>60 ml/min/1.73 sqM) Est GFR (CKD-EPI)NonAf (>60 ml/min/1.73 sqM) Glucose (74-99) mg/dL Calcium (8.4-10.2) mg/dL Total Bilirubin (0.2-1.3) mg/dL AST (14-36) U/L ALT (4-34) U/L Alkaline Phosphatase (38-126) U/L Total Protein (6.3-8.2) g/dL Albumin (3.5-5.0) g/dL Urine Color Light Yellow Urine Appearance Clear (Clear) Urine pH 5.5 (5.0-8.0) Ur Specific [place] 1.010 (1.001-1.035) Urine Protein Negative (Negative) Urine Glucose (UA) Negative (Negative) Urine Ketones Negative (Negative) Urine Blood Negative (Negative) Urine Nitrite Negative (Negative) Urine Bilirubin Negative (Negative) Urine Urobilinogen <2.0 (<2.0) mg/dL Ur Leukocyte Esterase Moderate H (Negative) Urine RBC 1 (0-5) /hpf Urine WBC 19 H (0-5) /hpf Ur Squamous Epith Cells <1 (0-4) /hpf Urine Bacteria Rare H (None) /hpf Hyaline Casts 11 H (0-2) /lpf Urine Mucus Rare H (None) /hpf Urine HCG, Qual Not Detected (Not Detectd) Salicylates mg/dL Urine Opiates Screen Not Detected (NotDetected) Ur Oxycodone Screen Not Detected (NotDetected) Urine Methadone Screen Not Detected (NotDetected) Acetaminophen ug/mL Ur Barbiturates Screen Not Detected (NotDetected) U Tricyclic Antidepress Not Detected (NotDetected) Ur Phencyclidine Scrn Not Detected (NotDetected) Ur Amphetamines Screen Not Detected (NotDetected) U Methamphetamines Scrn Not Detected (NotDetected) U Benzodiazepines Scrn Detected H (NotDetected) Urine Cocaine Screen Not Detected (NotDetected) U Marijuana (THC) Screen Detected H (NotDetected) Serum Alcohol mg/dL 05/31/24 Range/Units 02:15 WBC (3.8-10.6) k/uL RBC (3.80-5.40) m/uL Hgb (11.4-16.0) gm/dL Hct (34.0-46.0) % MCV (80.0-100.0) fL MCH (25.0-35.0) pg MCHC (31.0-37.0) g/dL RDW (11.5-15.5) % Plt Count (150-450) k/uL MPV Neutrophils % % Lymphocytes % % Monocytes % % Eosinophils % % Basophils % % Neutrophils # (1.3-7.7) k/uL Lymphocytes # (1.0-4.8) k/uL Monocytes # (0-1.0) k/uL Eosinophils # (0-0.7) k/uL Basophils # (0-0.2) k/uL Hypochromasia Sodium 138 (137-145) mmol/L Potassium 4.2 (3.5-5.1) mmol/L Chloride 103 (98-107) mmol/L Carbon Dioxide 26 (22-30) mmol/L Anion Gap 9 mmol/L BUN 30 H (7-17) mg/dL Creatinine 0.96 (0.52-1.04) mg/dL Est GFR (CKD-EPI)AfAm 77 (>60 ml/min/1.73 sqM) Est GFR (CKD-EPI)NonAf 66 (>60 ml/min/1.73 sqM) Glucose 80 (74-99) mg/dL Calcium 8.9 (8.4-10.2) mg/dL Total Bilirubin 0.5 (0.2-1.3) mg/dL AST 32 (14-36) U/L ALT 19 (4-34) U/L Alkaline Phosphatase 97 (38-126) U/L Total Protein 7.0 (6.3-8.2) g/dL Albumin 4.4 (3.5-5.0) g/dL Urine Color Urine Appearance (Clear) Urine pH (5.0-8.0) Ur Specific [place] (1.001-1.035) Urine Protein (Negative) Urine Glucose (UA) (Negative) Urine Ketones (Negative) Urine Blood (Negative) Urine Nitrite (Negative) Urine Bilirubin (Negative) Urine Urobilinogen (<2.0) mg/dL Ur Leukocyte Esterase (Negative) Urine RBC (0-5) /hpf Urine WBC (0-5) /hpf Ur Squamous Epith Cells (0-4) /hpf Urine Bacteria (None) /hpf Hyaline Casts (0-2) /lpf Urine Mucus (None) /hpf Urine HCG, Qual (Not Detectd) Salicylates <1.0 mg/dL Urine Opiates Screen (NotDetected) Ur Oxycodone Screen (NotDetected) Urine Methadone Screen (NotDetected) Acetaminophen <10.0 ug/mL Ur Barbiturates Screen (NotDetected) U Tricyclic Antidepress (NotDetected) Ur Phencyclidine Scrn (NotDetected) Ur Amphetamines Screen (NotDetected) U Methamphetamines Scrn (NotDetected) U Benzodiazepines Scrn (NotDetected) Urine Cocaine Screen (NotDetected) U Marijuana (THC) Screen (NotDetected) Serum Alcohol 15 mg/dL Disposition Clinical Impression: Fall Disposition: HOME SELF-CARE Condition: Good Is patient prescribed a controlled substance at d/c from ED?: No Referrals: None,Stated [Primary Care Provider] - 1-2 days Time of Disposition: 04:31
== END 2024-05-31 04:39 | disposition home or self-care (01) ==
LOC: EC 19:27
DX: M54.50 Low back pain, unspecified (principal); M25.561 Pain in right knee; F17.200 Nicotine dependence, unspecified, uncomplicated; W01.0XXA Fall on same level from slipping, tripping and stumbling without subsequent striking against object, initial encounter
CPT/HCPCS: 36415; 93005; 80053; 85025; 81001; 81025; 80306; 80143; 80179; 72100; 73562; 99284; 96360; G0480; 80320

== ENCOUNTER 2024-06-01 00:04 | Emergency (ER) | payer MEDICARE, OTHER ==
--- NOTE | 2024-06-01 02:00 | ED ---
General Adult HPI - General Chief complaint: Recheck/Abnormal Lab/Rx Stated complaint: Recheck for fall Time Seen by Provider: 06/01/24 00:22 Source: patient Mode of arrival: EMS Limitations: no limitations - History of Present Illness Initial comments: This patient is 54-year-old woman who presents to have evaluation of knee pain. The patient reportedly had ground-level fall onto anterior bilateral knees. Patient reportedly seen at [facility] for same complaint. She states she still has pain. Onset/Timin -: hour(s) Location: left, right, lower extremity Quality: aching Consistency: constant Improves with: none Worsens with: movement Associated Symptoms: denies other symptoms - Related Data Home Medications Medication Instructions Recorded Confirmed Albuterol Sulfate [Albuterol 2 puff INHALATION RT-Q6H PRN 05/22/24 07/02/24 Sulfate Hfa] Buprenorphine HCl/Naloxone HCl 1 film SUBLINGUAL TID 05/22/24 07/02/24 [Suboxone 8 mg-2 mg Sl Film] Furosemide [Lasix] 20 mg PO DAILY PRN 05/22/24 07/02/24 Potassium Chloride ER [K-Dur 10] 10 meq PO BID PRN 05/22/24 07/02/24 hydroCHLOROthiazide [Hydrodiuril] 25 mg PO DAILY 05/22/24 07/02/24 Previous Rx's Medication Instructions Recorded Levothyroxine Sodium [Synthroid] 175 mcg PO DAILY 15 Days #15 tab 05/30/24 lisinopriL [Zestril] 20 mg PO DAILY 15 Days #15 tab 05/30/24 Allergies Allergy/AdvReac Type Severity Reaction Status Date / Time nickel Allergy Rash/Hives Verified 07/02/24 20:52 ziprasidone [From Geodon] AdvReac Unknown Verified 07/02/24 20:52 Review of Systems ROS Statement: Those systems with pertinent positive or pertinent negative responses have been documented in the HPI. ROS Other: All systems not noted in ROS Statement are negative. Constitutional: Denies: fever, weakness Respiratory: Denies: dyspnea Cardiovascular: Denies: chest pain Gastrointestinal: Denies: abdominal pain Musculoskeletal: Reports: as per HPI, arthralgia. 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 currently c/o vaginal discharge and foul odor. Denies possibliity of STD's. History of Any Multi-Drug Resistant Organisms: C-DIFF Date of last positivie culture/infection: UNK MDRO Source:: stool Past Surgical History: Orthopedic Surgery Additional Past Surgical History / Comment(s): thyroid removal, had an ostomy but had reversal surgery, 8 level spinal fusion Past Anesthesia/Blood Transfusion Reactions: No Reported Reaction Past Psychological History: Anxiety, Depression Smoking Status: Current every day smoker Past Alcohol Use History: Abuse, Daily, Occasional Past Drug Use History: Heroin, Marijuana, Methamphetamine General Exam - General Exam Comments Initial Comments: Was pt. sent in by a medical professional or institution (, PA, [employer], urgent care, hospital, or alf...) When possible be specific @ -[No] Did you speak to anyone other than the patient for history (EMS, parent, family, police, friend...)? What history was obtained from this source @ -[No] Did you review nursing and triage notes (agree or disagree)? Why? @ -[I reviewed and agree with nursing and triage notes] Were old charts reviewed (outside hosp., previous admission, EMS record, old EKG, old radiological studies, urgent care reports/EKG's, alf records)? Report findings @ -[No old charts were reviewed] Differential Diagnosis (chest pain, altered mental status, abdominal pain women, abdominal pain men, vaginal bleeding, weakness, fever, dyspnea, syncope, headache, dizziness, GI bleed, back pain, seizure, CVA, palpatations, mental health, musculoskeletal)? @ -[Differential Musculoskeletal Muscular strain, contusion, ligament sprain, fracture, arthritis, septic arthritis, bursitis, cellulitis, muscle spasm, nerve compression, DVT, arterial occlusion, herpes zoster, electrolyte abnormality, tumor.... This is not meant to be in all inclusive list EKG interpreted by me (3pts min.). @ -[As above] X-rays interpreted by me (1pt min.). @ -[None done] CT interpreted by me (1pt min.). @ -[None done] U/S interpreted by me (1pt. min.). @ -[None done] What testing was considered but not performed or refused? (CT, X-rays, U/S, labs)? Why? @ -[None] What meds were considered but not given or refused? Why? @ -[None] Did you discuss the management of the patient with other professionals (professionals i.e. , PA, [employer], lab, RT, psych nurse, social welfare administrator, tooth clerk, teacher, admitting officer, director case)? Give summary @ -[No] Was smoking cessation discussed for >3mins.? @ -[No] Was critical care preformed (if so, how long)? @ -[No] Were there social determinants of health that impacted care today? How? (Homelessness, low income, unemployed, alcoholism, drug addiction, transportation, low edu. Level, literacy, decrease access to med. care, residential, rehab)? @ -[No] Was there de-escalation of care discussed even if they declined (Discuss DNR or withdrawal of care, Hospice)? DNR status @ -[No] What co-morbidities impacted this encounter? (DM, HTN, Smoking, COPD, CAD, Cancer, CVA, ARF, Chemo, Hep., AIDS, mental health diagnosis, sleep apnea, morbid obesity)? @ -[None] Was patient admitted / discharged? Hospital course, mention meds given and route, prescriptions, significant lab abnormalities, going to OR and other pertinent info. @ -[Patient is 54-year-old woman here with knee pain following low mechanism fall. The patient does pass clinical screening tool and does not require x-ray. Discussed appropriate further care and follow-up as well as return parameters Undiagnosed new problem with uncertain prognosis? @ -[No] Drug Therapy requiring intensive monitoring for toxicity (Heparin, Nitro, Insulin, Cardizem)? @ -[No] Were any procedures done? @ -[No] Diagnosis/symptom? @ -[Acute knee contusion Acute, or Chronic, or Acute on Chronic? @ -[Acute Uncomplicated (without systemic symptoms) or Complicated (systemic symptoms)? @ -[Uncomplicated Side effects of treatment? @ -[No] Exacerbation, Progression, or Severe Exacerbation? @ -[No] Poses a threat to life or bodily function? How? (Chest pain, [place], [place], pneumonia, PE, COPD, DKA, ARF, appy, cholecystitis, CVA, Diverticulitis, Homicidal, Suicidal, threat to staff... and all critical care pts) @ -[No] Limitations: no limitations General appearance: alert, in no apparent distress Head exam: Present: atraumatic, normocephalic Neck exam: Present: normal inspection Respiratory exam: Present: normal lung sounds bilaterally. Absent: respiratory distress, wheezes, rales, rhonchi, stridor Cardiovascular Exam: Present: regular rate, normal rhythm, normal heart sounds. Absent: systolic murmur, diastolic murmur, rubs, gallop GI/Abdominal exam: Present: soft. Absent: tenderness Extremities exam: Present: full ROM, tenderness, normal capillary refill, other (There are abrasions to bilateral anterior knee) Back exam: Present: normal inspection. Absent: vertebral tenderness Neurological exam: Present: alert. Absent: motor sensory deficit Skin exam: Present: warm, dry, intact, normal color, abrasion. Absent: rash Course Vital Signs 06/01/24 06/01/24 00:12 02:19 Temperature 97.8 F 98 F Pulse Rate 90 81 Respiratory 19 18 Rate Blood Pressure 160/97 158/95 O2 Sat by Pulse 100 99 Oximetry Disposition Clinical Impression: Knee contusion Disposition: HOME SELF-CARE Condition: Good Instructions (If sedation given, give patient instructions): Knee Pain (ED) Is patient prescribed a controlled substance at d/c from ED?: No Referrals: None,Stated [Primary Care Provider] - 1-2 days
[2024-06-01 02:21] VITALS: BP 158/95; PULSE 81; RESP 18; TEMP 98
== END 2024-06-01 02:21 | disposition home or self-care (01) ==
LOC: EC 00:04
DX: S80.02XA Contusion of left knee, initial encounter (principal); S80.01XA Contusion of right knee, initial encounter; F17.200 Nicotine dependence, unspecified, uncomplicated; Z88.8 Allergy status to other drugs, medicaments and biological substances; W18.30XA Fall on same level, unspecified, initial encounter
CPT/HCPCS: 99284

== ENCOUNTER 2024-06-05 02:14 | Emergency (ER) | payer MEDICAID, MEDICARE ==
[2024-06-05 04:05] LABS: Basophils # (A) 0.1 k/uL (0-0.2); Basophils % (A) 1 %; Eosinophils # (A) 0.1 k/uL (0-0.7); Eosinophils % (A) 1 %; HCT 39.8 % (34.0-46.0); HGB 12.4 gm/dL (11.4-16.0); Hypochromasia Slight; Lymphocytes % (A) 21 %; MCH 30.1 pg (25.0-35.0); MCHC 31.1 g/dL (31.0-37.0); MCV 96.9 fL (80.0-100.0); Mean Platelet Volume 7.3; Monocytes % (A) 7 %; Neutrophils # (A) 9.9 k/uL (1.3-7.7); Neutrophils % (A) 70 %; Platelet Count 326 k/uL (150-450); RBC 4.11 m/uL (3.80-5.40); RDW 14.4 % (11.5-15.5); WBC 14.3 k/uL (3.8-10.6)
[2024-06-05 04:37] LABS: ALT 23 U/L (4-34); AST 31 U/L (14-36); African American GFR (CKD) 86 (>60 ml/min/1.73 sqM); Albumin 4.3 g/dL (3.5-5.0); Alkaline Phosphatase 100 U/L (38-126); Anion Gap 7 mmol/L; Blood Urea Nitrogen 32 mg/dL (7-17); C Reactive Protein 0.7 mg/dL (<1.0); Calcium 8.8 mg/dL (8.4-10.2); Carbon Dioxide 30 mmol/L (22-30); Chloride 105 mmol/L (98-107); Glucose 82 mg/dL (74-99); Non-African American GFR(CKD) 74 (>60 ml/min/1.73 sqM); Potassium 3.8 mmol/L (3.5-5.1); Sodium 142 mmol/L (137-145); Total Bilirubin 0.4 mg/dL (0.2-1.3)
[2024-06-05 05:51] LABS: Appearance,Urine Cloudy (Clear); Bacteria,Urine Occasional /hpf; Bilirubin,Urine Negative (Negative); Blood,Urine Moderate (Negative); Color,Urine Yellow; Glucose,Urine (UA) Negative (Negative); Hyaline Casts,Urine 4 /lpf (0-2); Ketones,Urine Negative (Negative); Leukocyte Esterase,Urine Moderate (Negative); Mucus,Urine Rare /hpf; Nitrite,Urine Positive (Negative); Protein,Urine Trace (Negative); RBC,Urine 4 /hpf (0-5); Specific Gravity,Urine 1.023 (1.001-1.035); Squamous Epithelial Cell,Urine <1 /hpf (0-4); Urobilinogen,Urine <2.0 mg/dL (<2.0); WBC,Urine 11 /hpf (0-5)
[2024-06-05 07:25] VITALS: RESP 18
--- NOTE | 2024-06-05 07:50 | ED ---
General Adult HPI - General Source: EMS Mode of arrival: EMS - History of Present Illness -: week(s) Location: pelvis Radiation: non-radiation Quality: aching Consistency: intermittent Improves with: none Worsens with: none Treatments Prior to Arrival: none <Abdulaziz Brito - Last Filed: 06/05/24 07:53> <Anderson Cronin - Last Filed: 06/05/24 09:31> - General Chief complaint: Recheck/Abnormal Lab/Rx Stated complaint: Diarrhea Time Seen by Provider: 06/05/24 02:51 - History of Present Illness Initial comments: Patient is a 54-year-old woman who presents with a complaint that she believes she has a rectovaginal fistula. She states that she has at times passed stool through her vagina. She states she frequently passes gas through the vagina. History is positive for having rectal cancer which was treated with surgery (low anterior resection with subsequent colostomy reversal) and with radiation in 2017. The patient states that she has not had much follow-up since 2018. She has had symptoms intermittently going back for months now. She has not had fevers. She is now having some intermittent pelvic pressure type pains. She has not noted change in urination. (Abdulaziz Brito) - Related Data Home Medications Medication Instructions Recorded Confirmed Albuterol Sulfate [Albuterol 2 puff PO RT-Q6H PRN 05/22/24 06/05/24 Sulfate Hfa] Buprenorphine HCl/Naloxone HCl 1 film SUBLINGUAL TID 05/22/24 06/05/24 [Suboxone 8 mg-2 mg Sl Film] Furosemide [Lasix] 20 mg PO DAILY PRN 05/22/24 06/05/24 Potassium Chloride ER [K-Dur 10] 10 meq PO BID PRN 05/22/24 06/05/24 hydroCHLOROthiazide [Hydrodiuril] 25 mg PO DAILY 05/22/24 06/05/24 DULoxetine HCL [Cymbalta] 60 mg PO DIRECTED 05/23/24 06/05/24 Previous Rx's Medication Instructions Recorded Levothyroxine Sodium [Synthroid] 175 mcg PO DAILY 15 Days #15 tab 05/30/24 Omeprazole/Sodium Bicarbonate 1 cap PO BID 15 Days #30 cap 05/30/24 [Zegerid 20 mg Capsule] lisinopriL [Zestril] 20 mg PO DAILY 15 Days #15 tab 05/30/24 Allergies Allergy/AdvReac Type Severity Reaction Status Date / Time nickel Allergy Rash/Hives Verified 06/05/24 09:13 ziprasidone [From Janny] AdvReac Unknown Verified 06/05/24 09:13 Review of Systems ROS Other: All systems not noted in ROS Statement are negative. Constitutional: Denies: fever, chills, weakness Respiratory: Denies: cough, dyspnea Cardiovascular: Denies: chest pain, palpitations, edema Gastrointestinal: Reports: as per HPI, abdominal pain, diarrhea. Denies: nausea, vomiting, constipation Genitourinary: Reports: as per HPI. Denies: dysuria, hematuria Musculoskeletal: Denies: back pain Skin: Denies: rash Neurological: Denies: headache, weakness <Abdulaziz Brito - Last Filed: 06/05/24 07:53> ROS Other: All systems not noted in ROS Statement are negative. <Anderson Cronin - Last Filed: 06/05/24 09:31> ROS Statement: Those systems with pertinent positive or pertinent negative responses have been documented in the HPI. Past Medical History Past Medical History: Asthma, Hypertension, Musculoskeletal Disorder, Osteoarthritis (OA), Thyroid Disorder, Vascular Disorder Additional Past Medical History / Comment(s): Pt has vascular insufficiency in legs, neuropathy in legs, asthma, spinal stenosis, OA, vocal cord insuff. r/t multiple times being intubated, thyroidectomy and rectal ca [id number] with chemo and radiation. currently c/o vaginal discharge and foul odor. Denies possibliity of STD's. History of Any Multi-Drug Resistant Organisms: C-DIFF Date of last positivie culture/infection: UNK MDRO Source:: stool Past Surgical History: Orthopedic Surgery Additional Past Surgical History / Comment(s): thyroid removal, had an ostomy but had reversal surgery, 8 level spinal fusion Past Anesthesia/Blood Transfusion Reactions: No Reported Reaction Past Psychological History: Anxiety, Depression Smoking Status: Current every day smoker Past Alcohol Use History: Abuse, Daily, Occasional Past Drug Use History: Heroin, Marijuana, Methamphetamine <Abdulaziz Brito - Last Filed: 06/05/24 07:53> General Exam Limitations: no limitations General appearance: alert, in no apparent distress Head exam: Present: atraumatic, normocephalic Eye exam: Present: normal appearance. Absent: scleral icterus, conjunctival injection ENT exam: Present: normal oropharynx Neck exam: Present: normal inspection Respiratory exam: Present: normal lung sounds bilaterally. Absent: respiratory distress, wheezes, rales, rhonchi, stridor Cardiovascular Exam: Present: regular rate, normal rhythm, normal heart sounds. Absent: systolic murmur, diastolic murmur, rubs, gallop GI/Abdominal exam: Present: soft, tenderness (Some mild suprapubic tenderness, no rebound or guarding). Absent: distended, guarding, rebound, rigid, mass Extremities exam: Present: normal inspection, normal capillary refill. Absent: pedal edema, calf tenderness Back exam: Present: normal inspection. Absent: CVA tenderness (R), CVA tenderness (L) Neurological exam: Present: alert Skin exam: Present: warm, dry, intact, normal color. Absent: rash <Abdulaziz Brito - Last Filed: 06/05/24 07:53> Course Vital Signs 06/05/24 06/05/24 02:22 07:24 Temperature 98.2 F 97.7 F Pulse Rate 92 78 Respiratory 22 18 Rate Blood Pressure 150/95 140/73 O2 Sat by Pulse 98 97 Oximetry Medical Decision Making - Lab Data Result diagrams: 06/05/24 03:22 06/05/24 03:22 <Abdulaziz Brito - Last Filed: 06/05/24 07:53> - Lab Data Result diagrams: 06/05/24 03:22 06/05/24 03:22 <Anderson Cronin - Last Filed: 06/05/24 09:31> - Medical Decision Making Was pt. sent in by a medical professional or institution (, PA, EXTRUSION DIE REPAIRER, urgent care, hospital, or chcf...) When possible be specific @ -[No] Did you speak to anyone other than the patient for history (EMS, parent, family, police, friend...)? What history was obtained from this source @ -[No] Did you review nursing and triage notes (agree or disagree)? Why? @ -[I reviewed and agree with nursing and triage notes] Were old charts reviewed (outside hosp., previous admission, EMS record, old EKG, old radiological studies, urgent care reports/EKG's, chcf records)? Report findings @ -[No old charts were reviewed] Differential Diagnosis (chest pain, altered mental status, abdominal pain women, abdominal pain men, vaginal bleeding, weakness, fever, dyspnea, syncope, headache, dizziness, GI bleed, back pain, seizure, CVA, palpatations, mental health, musculoskeletal)? @ -[Differential Abdominal Pain Women: Appendicitis, Cholecystitis, diverticulosis, ischemic bowel, pancreatitis, hepatitis, UTI, gastroenteritis, AAA, incarcerated hernia, bowel obstruction, constipation, inflammatory bowel, hepatitis, peptic ulcer disease, splenic infarction, perforated viscus, vulvitis, ovarian torsion, PID, kidney stone, placenta abruption, this is not meant to be an all-inclusive list EKG interpreted by me (3pts min.). @ -[As above] X-rays interpreted by me (1pt min.). @ -[None done] CT interpreted by me (1pt min.). @ -[None done] U/S interpreted by me (1pt. min.). @ -[None done] What testing was considered but not performed or refused? (CT, X-rays, U/S, labs)? Why? @ -[None] What meds were considered but not given or refused? Why? @ -[None] Did you discuss the management of the patient with other professionals (professionals i.e. , PA, EXTRUSION DIE REPAIRER, lab, RT, psych nurse, case management social worker, drafting clerk, teacher, audit officer, case operator)? Give summary @ -[No] Was smoking cessation discussed for >3mins.? @ -[No] Was critical care preformed (if so, how long)? @ -[No] Were there social determinants of health that impacted care today? How? (Home lessness, low income, unemployed, alcoholism, drug addiction, transportation, low edu. Level, literacy, decrease access to med. care, fdc, rehab)? @ -[No] Was there de-escalation of care discussed even if they declined (Discuss DNR or withdrawal of care, Hospice)? DNR status @ -[No] What co-morbidities impacted this encounter? (DM, HTN, Smoking, COPD, CAD, Cancer, CVA, ARF, Chemo, Hep., AIDS, mental health diagnosis, sleep apnea, morbid obesity)? @ -[None] Was patient admitted / discharged? Hospital course, mention meds given and route, prescriptions, significant lab abnormalities, going to OR and other pertinent info. @ -[This patient is pending the CT scan at the time of shift change. (Abdulaziz Brito) Was patient admitted / discharged? Hospital course, mention meds given and route, prescriptions, significant lab abnormalities, going to OR and other pertinent info. @ -Patient was signed out to me by Dr. Montero. I went into the room to reevaluate the patient she was sleeping and stated she only had very minimal pain CT was interpreted by myself showed no acute normality. I also read the radiologist interpretation they show no fistula or abscess. Patient states she will follow-up with Dr. Good Undiagnosed new problem with uncertain prognosis? @ -[No] Drug Therapy requiring intensive monitoring for toxicity (Heparin, Nitro, Insulin, Cardizem)? @ -[No] Were any procedures done? @ -[No] Diagnosis/symptom? @ -[default] Acute, or Chronic, or Acute on Chronic? @ -[default] Uncomplicated (without systemic symptoms) or Complicated (systemic symptoms)? @ -[default] Side effects of treatment? @ -[No] Exacerbation, Progression, or Severe Exacerbation? @ -[No] Poses a threat to life or bodily function? How? (Chest pain, USA, MA, pneumonia, PE, COPD, DKA, ARF, appy, cholecystitis, CVA, Diverticulitis, Homicidal, Suicidal, threat to staff... and all critical care pts) @ -[No] (Anderson Cronin) - Lab Data Lab Results 06/05/24 06/05/24 06/05/24 Range/Units 03:22 03:22 03:22 WBC 14.3 H (3.8-10.6) k/uL RBC 4.11 (3.80-5.40) m/uL Hgb 12.4 (11.4-16.0) gm/dL Hct 39.8 (34.0-46.0) % MCV 96.9 (80.0-100.0) fL MCH 30.1 (25.0-35.0) pg MCHC 31.1 (31.0-37.0) g/dL RDW 14.4 (11.5-15.5) % Plt Count 326 (150-450) k/uL MPV 7.3 Neutrophils % 70 % Lymphocytes % 21 % Monocytes % 7 % Eosinophils % 1 % Basophils % 1 % Neutrophils # 9.9 H (1.3-7.7) k/uL Lymphocytes # 3.0 (1.0-4.8) k/uL Monocytes # 1.0 (0-1.0) k/uL Eosinophils # 0.1 (0-0.7) k/uL Basophils # 0.1 (0-0.2) k/uL Hypochromasia Slight Sodium 142 (137-145) mmol/L Potassium 3.8 (3.5-5.1) mmol/L Chloride 105 (98-107) mmol/L Carbon Dioxide 30 (22-30) mmol/L Anion Gap 7 mmol/L BUN 32 H (7-17) mg/dL Creatinine 0.88 (0.52-1.04) mg/dL Est GFR (CKD-EPI)AfAm 86 (>60 ml/min/1.73 sqM) Est GFR (CKD-EPI)NonAf 74 (>60 ml/min/1.73 sqM) Glucose 82 (74-99) mg/dL Calcium 8.8 (8.4-10.2) mg/dL Total Bilirubin 0.4 (0.2-1.3) mg/dL AST 31 (14-36) U/L ALT 23 (4-34) U/L Alkaline Phosphatase 100 (38-126) U/L C-Reactive Protein 0.7 (<1.0) mg/dL Total Protein 7.0 (6.3-8.2) g/dL Albumin 4.3 (3.5-5.0) g/dL Urine Color Yellow Urine Appearance Cloudy H (Clear) Urine pH 7.0 (5.0-8.0) Ur Specific [place] 1.023 (1.001-1.035) Urine Protein Trace H (Negative) Urine Glucose (UA) Negative (Negative) Urine Ketones Negative (Negative) Urine Blood Moderate H (Negative) Urine Nitrite Positive H (Negative) Urine Bilirubin Negative (Negative) Urine Urobilinogen <2.0 (<2.0) mg/dL Ur Leukocyte Esterase Moderate H (Negative) Urine RBC 4 (0-5) /hpf Urine WBC 11 H (0-5) /hpf Ur Squamous Epith Cells <1 (0-4) /hpf Urine Bacteria Occasional H (None) /hpf Hyaline Casts 4 H (0-2) /lpf Urine Mucus Rare H (None) /hpf C. difficile (EIA) Intrp (Negative) 06/05/24 Range/Units 03:22 WBC (3.8-10.6) k/uL RBC (3.80-5.40) m/uL Hgb (11.4-16.0) gm/dL Hct (34.0-46.0) % MCV (80.0-100.0) fL MCH (25.0-35.0) pg MCHC (31.0-37.0) g/dL RDW (11.5-15.5) % Plt Count (150-450) k/uL MPV Neutrophils % % Lymphocytes % % Monocytes % % Eosinophils % % Basophils % % Neutrophils # (1.3-7.7) k/uL Lymphocytes # (1.0-4.8) k/uL Monocytes # (0-1.0) k/uL Eosinophils # (0-0.7) k/uL Basophils # (0-0.2) k/uL Hypochromasia Sodium (137-145) mmol/L Potassium (3.5-5.1) mmol/L Chloride (98-107) mmol/L Carbon Dioxide (22-30) mmol/L Anion Gap mmol/L BUN (7-17) mg/dL Creatinine (0.52-1.04) mg/dL Est GFR (CKD-EPI)AfAm (>60 ml/min/1.73 sqM) Est GFR (CKD-EPI)NonAf (>60 ml/min/1.73 sqM) Glucose (74-99) mg/dL Calcium (8.4-10.2) mg/dL Total Bilirubin (0.2-1.3) mg/dL AST (14-36) U/L ALT (4-34) U/L Alkaline Phosphatase (38-126) U/L C-Reactive Protein (<1.0) mg/dL Total Protein (6.3-8.2) g/dL Albumin (3.5-5.0) g/dL Urine Color Urine Appearance (Clear) Urine pH (5.0-8.0) Ur Specific [place] (1.001-1.035) Urine Protein (Negative) Urine Glucose (UA) (Negative) Urine Ketones (Negative) Urine Blood (Negative) Urine Nitrite (Negative) Urine Bilirubin (Negative) Urine Urobilinogen (<2.0) mg/dL Ur Leukocyte Esterase (Negative) Urine RBC (0-5) /hpf Urine WBC (0-5) /hpf Ur Squamous Epith Cells (0-4) /hpf Urine Bacteria (None) /hpf Hyaline Casts (0-2) /lpf Urine Mucus (None) /hpf C. difficile (EIA) Intrp Negative (Negative) Disposition <Abdulaziz Brito - Last Filed: 06/05/24 07:53> Is patient prescribed a controlled substance at d/c from ED?: No Time of Disposition: 09:30 <Anderson Cronin - Last Filed: 06/05/24 09:31> Clinical Impression: History of rectal cancer Disposition: HOME SELF-CARE Condition: Good Referrals: Sudhir Good MD [Medical Doctor] - 1-2 days
--- NOTE | 2024-06-05 08:00 | CT ---
EXAMINATION TYPE: CT abdomen pelvis w con DATE OF EXAM: 06/05/2024 COMPARISON: None HISTORY: pelvic pain, history of rectal CA. Possible fistula or abscess CT DLP: 3011.4 mGycm CONTRAST: CT scan of the abdomen and pelvis is performed without Oral Contrast and with IV Contrast, patient in jected with 100 mL of Isovue 300. FINDINGS: LUNG BASES-: No visible nodule. No infiltrate. LIVER/GB: No calcified gallstones. There is mild hepatomegaly noted. No space occupying hepatic les ion. Biliary tree is of normal caliber. PANCREAS: No inflammation. No distinct mass. SPLEEN: No splenic enlargement. No lesion seen. ADRENALS: No nodule. No thickening. KIDNEYS/BLADDER: No hydronephrosis. No nephrolithiasis. No distinct renal mass. Urinary bladder g rossly unremarkable. BOWEL: There is nonvisualization of the appendix. Normal bowel caliber. No inflammation. Rectal sut ures are noted. The sacral attenuation. The findings likely are related to posttreatment changes. No evidence for recurrent mass seen by CT. [id number] scattered fecal stasis. GENITAL ORGANS: Hysterectomy changes noted. LYMPH NODES: No greater than 1cm abdominal or pelvic lymph nodes are appreciated. AORTA: No significant abnormality. OSSEOUS STRUCTURES: No significant abnormality is seen. OTHER: No significant additional abnormality is seen. IMPRESSION: 1. Postoperative changes about the rectum with posttreatment changes seen. No evidence for abscess or fistula. 2 mild to moderate fecal stasis throughout the colon.
[2024-06-05] MEDS: KETOROLAC 15 MG/ML 1 ML VIAL IVP STA (09:33)
[2024-06-05 09:38] VITALS: BP 138/81; PULSE 77; TEMP 97.8
== END 2024-06-05 09:41 | disposition home or self-care (01) ==
LOC: EC 02:14
DX: R19.7 Diarrhea, unspecified (principal); Z85.048 Personal history of other malignant neoplasm of rectum, rectosigmoid junction, and anus; F17.200 Nicotine dependence, unspecified, uncomplicated; Z88.8 Allergy status to other drugs, medicaments and biological substances; Z91.048 Other nonmedicinal substance allergy status
CPT/HCPCS: 36415; 80053; 85025; 86140; 81001; 87324; 74177; 99284; 96374; J1885; Q9967

== ENCOUNTER 2024-06-12 02:25 | Emergency (ER) | payer MEDICARE, MEDICAID ==
[2024-06-12] MEDS ORDERED: predniSONE 20 MG TAB ONE (03:33)
[2024-06-12] MEDS ORDERED: DEXAMETHASONE SOD PHOSPHATE 10 MG/ML 1 ML VIAL ONE (08:31)
[2024-06-12] MEDS ORDERED: LORazepam 1 MG TAB ONE (08:32)
[2024-06-12] MEDS ORDERED: hydroCHLOROthiazide 25 MG TAB ONE (08:33)
[2024-06-12] MEDS ORDERED: FUROSEMIDE 20 MG TAB ONE (08:33)
[2024-06-12] MEDS ORDERED: lisinopriL 20 MG TAB ONE (08:34)
[2024-06-12] MEDS ORDERED: SODIUM CHLORIDE 0.9% NEBULIZ 3 ML INHALATION ONE (08:44)
[2024-06-12] MEDS ORDERED: RACEPINEPHRINE 2.25% NEB 0.5 ML NEBU INHALATION ONE (08:44)
--- NOTE | 2024-07-10 18:26 | XR ---
Site ID synapse default Patient Catherine Villela ID [id number] Age/Gender: 54Y, F Order # N/A Procedure CXR 2V Date 06/12/2024 3:31:26 AM EXAMINATION TYPE: Chest X-ray 2 Views DATE OF EXAM: 06/29/2024 11:41 PM COMPARISON: Chest radiographs from 03/11/2024 TECHNIQUE: Chest X-ray 2 Views Frontal and lateral views of the chest. CLINICAL INDICATION: Female, 64 year old with history of stridor. FINDINGS: Lungs/Pleura: There is no evidence of pleural effusion, focal consolidation, or pneumothorax. Pulmonary vascularity: Mild pulmonary vascular congestion. Heart/mediastinum: Cardiomediastinal silhouette is unremarkable. Musculoskeletal: No acute osseous pathology. Multilevel degenerative disc disease. Partial visualizat ion of posterior thoracolumbar fusion hardware. Other findings: None Lines/Tubes: Redemonstration of left chest wall subclavian approach Mediport catheter distal tip in the high SVC. IMPRESSION: Mild diffuse pulmonary vascular congestion.
== END 2024-06-12 09:37 | disposition home or self-care (01) ==
LOC: EC 02:25
DX: R09.89 Other specified symptoms and signs involving the circulatory and respiratory systems (principal)
CPT/HCPCS: 71046; J1100; J7512

== ENCOUNTER 2024-06-15 15:00 | Inpatient (IN) | payer MEDICARE, MEDICAID ==
--- NOTE | 2024-07-31 14:39 | CONS ---
CONSULTATION HISTORY OF PRESENT ILLNESS: This is a mental health consultation for Medicine. The patient was admitted on 06/13 in the emergency room, and was ultimately transferred to the mental health unit on 06/15. The patient has multiple medical comorbidities including obesity, class 3, mild intermittent asthma, vocal cord dysfunction, hypertension, opiate use disorder on Suboxone with social determinants of health complicated by homelessness. The patient presented for mental health evaluation due to having suicidal ideation. The patient has no complaints at this time of suicidal ideation to my history and physical. However, she does complain of some vaginal discharge, foul smelling and is concerned that she may have a fistula due to having the history of rectal cancer with pelvic radiation in 2017. However, the patient denies fevers, chills, dysuria, dyschezia, hesitancy, suprapubic tenderness, nocturia. The patient denies numbness/weakness of extremities. As of this morning, the patient was afebrile, 166/112, heart rate 73, 97% on room air. Her CBC on admission demonstrated a white blood cell count of 8.7, hemoglobin of 12.4, platelets of 232. Basic metabolic panel showed sodium of 140, potassium of 3.9, chloride of 105, CO2 of 25, BUN of 24, creatinine of 0.6, glucose of 141. Urine HCG was negative. was negative. Urinalysis was significant for 1+ protein, nitrite positive, large leukocyte esterase, appeared turbid. Microscopy demonstrated 8 red blood cells, 79 white blood cells, and 53,000 small particles. Urine tox screen was positive for THC, but was negative for all other substances. No images were available to review. REVIEW OF SYSTEMS: All systems were reviewed, and pertinent positives and negatives were listed in the HPI. PHYSICAL EXAMINATION: GENERAL: The patient was in no apparent distress, nontoxic appearing. RESPIRATORY STATUS: The patient had symmetric chest expansion, adequate breath sounds, no crackles, no wheezes, did have audible expiratory phonation that appeared intentional. CARDIOVASCULAR: Demonstrated regular rate and rhythm without any evidence of murmurs. GASTROINTESTINAL: The abdomen was soft, nontender to palpation, nondistended. GENITOURINARY: No suprapubic tenderness, no costovertebral angle tenderness. MUSCULOSKELETAL: The patient has chronic dermatitis changes in the bilateral lower extremities. The patient does not have any evidence of pitting edema at this time. PSYCHIATRIC: The patient was cooperative, euthymic mood. LABS AND IMAGES: Appreciated above in the HPI. ASSESSMENT/PLAN: 1. Hypertension: Resume the patient's hydrochlorothiazide, lisinopril. The patient's Lasix can be discontinued, follow blood pressures and consider addition of amlodipine or up-titration of lisinopril if it remains elevated by tomorrow, nursing should contact [facility] physicians if titration of blood pressure medications necessary in this patient. 2. Hypothyroidism: Resume Synthroid 175 mcg. 3. Mild intermittent asthma: Resume albuterol 2 puffs q.4 hours p.r.n., the patient is not in asthma exacerbation at this time, and therefore, we will discontinue prednisone 50 mg. 4. Opiate use disorder, nicotine use disorder: Resume Suboxone, home dose 8/2 mg sublingual t.i.d., the patient's preference for nicotine replacement therapy of 2 mg nicotine gum. 5. Gastroesophageal reflux disease without esophagitis: Resume proton pump inhibitor 20 mg b.i.d. 6. Asymptomatic bacteriuria: Defer antibiotics at this time due to being asymptomatic. 7. Vaginal discharge: The patient reports it has been a longstanding issue, I recommend she follow up with STRUCTURAL METAL F[employer]RICATOR APPRENTICE as an outpatient or if she continues to complain about this and the primary teams if necessary, feel free to consult Gynecology for further assessment. Thank you for this consultation, we will be available for questions, concerns at [facility], phone number [phone]. DALIA / ISRAN: [id number] /
== END 2024-06-19 13:05 | disposition home or self-care (01) | DRG 885 ==
LOC: EC 15:00 → 3MHU 18:00
PROVIDERS: ADMIT Psychiatry & Neurology Psychiatry; ATTEND Psychiatry & Neurology Psychiatry
DX: F33.2 Major depressive disorder, recurrent severe without psychotic features (principal); R45.851 Suicidal ideations; Z59.00 Homelessness unspecified; N82.8 Other female genital tract fistulae; E66.01 Morbid (severe) obesity due to excess calories; J45.20 Mild intermittent asthma, uncomplicated; J38.3 Other diseases of vocal cords; I10 Essential (primary) hypertension; I73.9 Peripheral vascular disease, unspecified; F11.10 Opioid abuse, uncomplicated; F12.10 Cannabis abuse, uncomplicated; F14.10 Cocaine abuse, uncomplicated; E03.9 Hypothyroidism, unspecified; R82.71 Bacteriuria; F17.210 Nicotine dependence, cigarettes, uncomplicated; N89.8 Other specified noninflammatory disorders of vagina; Z79.890 Hormone replacement therapy; Z79.899 Other long term (current) drug therapy; Z88.8 Allergy status to other drugs, medicaments and biological substances; Z92.3 Personal history of irradiation; Z85.048 Personal history of other malignant neoplasm of rectum, rectosigmoid junction, and anus; Z92.21 Personal history of antineoplastic chemotherapy; Z71.51 Drug abuse counseling and surveillance of drug abuser; Z11.52 Encounter for screening for COVID-19
CPT/HCPCS: 94640; 99285

== ENCOUNTER 2024-07-02 18:23 | Emergency (ER) | payer MEDICARE, MEDICAID ==
[2024-07-02 19:39] LABS: Appearance,Urine Clear (Clear); Bacteria,Urine Rare /hpf; Bilirubin,Urine Negative (Negative); Blood,Urine Negative (Negative); Color,Urine Colorless; Glucose,Urine (UA) Negative (Negative); Hyaline Casts,Urine 9 /lpf (0-2); Ketones,Urine Negative (Negative); Leukocyte Esterase,Urine Moderate (Negative); Mucus,Urine Rare /hpf; Nitrite,Urine Negative (Negative); Protein,Urine Negative (Negative); RBC,Urine 1 /hpf (0-5); Specific Gravity,Urine 1.009 (1.001-1.035); Squamous Epithelial Cell,Urine 1 /hpf (0-4); Urobilinogen,Urine <2.0 mg/dL (<2.0); WBC,Urine 4 /hpf (0-5)
[2024-07-02 19:48] LABS: Amphetamine Screen,Urine Not Detected (NotDetected); Barbiturate Screen,Urine Not Detected (NotDetected); Benzodiazepines Screen,Urine Detected (NotDetected); Cocaine Screen,Urine Not Detected (NotDetected); Methadone Screen, Urine Not Detected (NotDetected); Opiate Screen,Urine Not Detected (NotDetected); Oxycodone Screen, Urine Not Detected (NotDetected); Phencyclidine Screen,Urine Not Detected (NotDetected); Tricyclic Antidepressant,Urine Not Detected (NotDetected); Urn Cannabinoid Scrn Not Detected (NotDetected)
[2024-07-02] MEDS: SODIUM CHLORIDE 0.9% 1,000 ML IV STA (20:18)
--- NOTE | 2024-07-02 20:25 | XR ---
EXAMINATION TYPE: XR chest 1V portable DATE OF EXAM: 07/02/2024 8:20 PM CLINICAL INDICATION:Female, 54 years old with history of overdose; H COMPARISON: None TECHNIQUE: XR chest 1V portable Frontal view of the chest. FINDINGS: Lungs/Pleura: There is no evidence of pleural effusion, focal consolidation, or pneumothorax. Pulmonary vascularity: Unremarkable. Heart/mediastinum: Cardiomediastinal silhouette is unremarkable. Musculoskeletal: No acute osseous pathology. Partially visualized thoracic fusion kenan. Lines/Tubes: Partially visualized catheter overlying the left hemithorax is felt external to the patient. IMPRESSION: No acute cardiopulmonary disease/process.
[2024-07-02 20:38] LABS: ALT 19 U/L (4-34); AST 33 U/L (14-36); Acetaminophen <10.0 ug/mL; African American GFR (CKD) 70 (>60 ml/min/1.73 sqM); Albumin 4.4 g/dL (3.5-5.0); Alcohol <10 mg/dL; Alkaline Phosphatase 118 U/L (38-126); Anion Gap 7 mmol/L; Blood Urea Nitrogen 23 mg/dL (7-17); Calcium 9.4 mg/dL (8.4-10.2); Carbon Dioxide 32 mmol/L (22-30); Chloride 98 mmol/L (98-107); Glucose 83 mg/dL (74-99); Non-African American GFR(CKD) 61 (>60 ml/min/1.73 sqM); Potassium 3.1 mmol/L (3.5-5.1); Salicylate <1.0 mg/dL; Sodium 137 mmol/L (137-145); Total Bilirubin 0.8 mg/dL (0.2-1.3); Total Protein 7.4 g/dL (6.3-8.2)
[2024-07-02 20:43] LABS: Basophils # (A) 0.1 k/uL (0-0.2); Basophils % (A) 1 %; Eosinophils # (A) 0.3 k/uL (0-0.7); Eosinophils % (A) 3 %; HCT 39.4 % (34.0-46.0); HGB 12.9 gm/dL (11.4-16.0); Lymphocytes # (A) 1.6 k/uL (1.0-4.8); Lymphocytes % (A) 17 %; MCH 30.4 pg (25.0-35.0); MCHC 32.8 g/dL (31.0-37.0); MCV 92.7 fL (80.0-100.0); Mean Platelet Volume 6.9; Monocytes # (A) 0.4 k/uL (0-1.0); Monocytes % (A) 4 %; Neutrophils % (A) 74 %; Platelet Count 271 k/uL (150-450); RBC 4.25 m/uL (3.80-5.40); RDW 14.3 % (11.5-15.5); WBC 9.5 k/uL (3.8-10.6)
[2024-07-02] MEDS: POTASSIUM CHLORIDE 20 MEQ in WATER FOR INJECTION 1 100ML.BAG IVPB STA (21:18)
[2024-07-02] MEDS: POTASSIUM CHLORIDE ER 20 MEQ TAB.ER PO STA (21:20)
[2024-07-02] MEDS: SODIUM CHLORIDE 0.9% 500 ML 500 ML IV STA (21:21)
[2024-07-03] MEDS: POTASSIUM CHLORIDE ER 20 MEQ TAB.ER PO STA ×2 (04:44→08:38)
[2024-07-03 12:33] LABS: African American GFR (CKD) 82 (>60 ml/min/1.73 sqM); Anion Gap 3 mmol/L; Blood Urea Nitrogen 21 mg/dL (7-17); Calcium 8.7 mg/dL (8.4-10.2); Carbon Dioxide 31 mmol/L (22-30); Chloride 99 mmol/L (98-107); Glucose 86 mg/dL (74-99); Non-African American GFR(CKD) 71 (>60 ml/min/1.73 sqM); Potassium 3.2 mmol/L (3.5-5.1); Sodium 133 mmol/L (137-145)
[2024-07-03] MEDS: ACETAMINOPHEN TAB 500 MG TAB PO STA (17:17)
[2024-07-03] MEDS: LORazepam 1 MG TAB PO STA (17:19)
[2024-07-04] MEDS: ALBUTEROL NEBULIZED 2.5 MG/3 ML INHALATION STA (02:15)
[2024-07-04] MEDS: ACETAMINOPHEN TAB 500 MG TAB PO STA (02:41)
[2024-07-04] MEDS: LORazepam 1 MG TAB PO STA (02:41)
[2024-07-04 07:34] VITALS: BP 140/86; PULSE 76; RESP 17; TEMP 98.1
== END 2024-07-04 07:34 ==
LOC: EC 18:23
DX: T50.1X2A Poisoning by loop [high-ceiling] diuretics, intentional self-harm, initial encounter (principal)
CPT/HCPCS: 36415; 71045; 80048; 80053; 80143; 80179; 80306; 80320; 81001; 83605; 85025; 87635; 93005; 94640; 96361; 96365; 96366; 99285